=== PATIENT | male | born 1965 | race Caucasian/White ===

== ENCOUNTER 2019-10-11 10:59 | Day surgery (SDC) | payer MEDICARE, OTHER ==
[2019-10-03 08:42] VITALS: BMI 22.3
--- NOTE | 2019-10-05 19:46 | P.HPIHPCON ---
History of Present Illness H&P Date: 10/11/19 Chief Complaint: Microscopic hematuria Mr Magallanes is a 54 male that presented with microscopic hematuria. Patient lives in a group facility home and is nonverbal. Given patient microscopic hematuria decision was made to go to the OR for cystoscopy bilateral retrograde pyelogram. I discussed the risks with the family of the patient which includes bleeding infection. Also discussed the risk of anesthesia. They understood all the risk and agrees to proceed with surgery Consent for Procedure: I have explained the operation/procedure to the patient, including the risks, benefits, side effects, alternative therapies (including not receiving the proposed treatment or service), the likelihood of the patient achieving his/her goals, and potential recuperation problems for the procedure/sedation/analgesia, as well as any blood products, if indicated. I also explained to the patient the risks, benefits and side effects of the alternatives, as well as the risks related to not receiving the proposed procedure, care, treatment, or services. Past Medical History Past Medical History: Diabetes Mellitus, Deep Vein Thrombosis (DVT), Hyperlipidemia Additional Past Medical History / Comment(s): 2 episodes of urine incontinence and light bleeding in urine, developemental disabled,mental retardation-non verbal-able to sign-needs digital design engineer,able to walk with walker r/t vertigo,deaf History of Any Multi-Drug Resistant Organisms: None Reported Additional Past Surgical History / Comment(s): colonscopy,green field filter Past Anesthesia/Blood Transfusion Reactions: No Reported Reaction Additional Past Anesthesia/Blood Transfusion Reaction / Comment(s): no hx blood transfusion Smoking Status: Never smoker - Past Family History Mother Family Medical History: Cancer, Deep Vein Thrombosis (DVT) Additional Family Medical History / Comment(s): breast CA Sister(s) Family Medical History: Cancer Additional Family Medical History / Comment(s): thyroid CA Medications and Allergies Home Medications Medication Instructions Recorded Confirmed Type ARIPiprazole [Abilify] 20 mg PO BID 06/10/14 10/03/19 History Citalopram Hydrobromide 40 mg PO QAM 06/10/14 10/03/19 History [Citalopram HBr] LORazepam [Ativan] 0.5 mg PO BID PRN 06/10/14 10/03/19 History Omeprazole 40 mg PO QAM 06/10/14 10/03/19 History Vit A,C & E/Lutein/Minerals 1 each PO BID 06/10/14 10/03/19 History [Ocuvite Tablet] metFORMIN HCL 1,000 mg PO BID 06/10/14 10/03/19 History Artificial Tears-Hypromellose 1 drops BOTH EYES TID 10/03/19 10/03/19 History [Artificial Tear Drops] Docusate [Colace] 100 mg PO BID 10/03/19 10/03/19 History Erythromycin Ophth Oint [Romycin 1 applic BOTH EYES HS 10/03/19 10/03/19 History Ophth Oint] Fenofibrate Nanocrystallized 145 mg PO DAILY 10/03/19 10/03/19 History [Fenofibrate] Lisinopril [Zestril] 5 mg PO HS 10/03/19 10/03/19 History Lovastatin [Mevacor] 80 mg PO HS 10/03/19 10/03/19 History Magnesium 400 mg PO DAILY 10/03/19 10/03/19 History Mirabegron [Myrbetriq] 50 mg PO DAILY 10/03/19 10/03/19 History Tamsulosin [Flomax] 0.4 mg PO DAILY 10/03/19 10/03/19 History diphenhydrAMINE [Benadryl] 25 mg PO HS 10/03/19 10/03/19 History Allergies Allergy/AdvReac Type Severity Reaction Status Date / Time codeine Allergy Unknown Verified 10/03/19 08:30 Surgical - Exam - General no distress, no pain - Respiratory normal expansion, normal respiratory effort - Abdomen Abdomen: soft, non tender Assessment and Plan Assessment: 54-year-old male with history of microscopic hematuria -OR for cystoscopy and bilateral retrograde pyelogram
[~2019-10-11 10:59] MED LIST: DEXAMETHASONE SOD PHOSPHATE 10 MG/ML 1 ML VIAL IV ONE; LACTATED RINGERS 1,000 ML IV SCH; LIDOCAINE 1% 20 ML VIAL (10MG/ML) FOR IV START INTRADERMA PRN; ONDANSETRON 4 MG/2 ML VIAL IVP ONE; SCOPOLAMINE 1.5MG/72HR PATCH TRANSDERM ONE; fentaNYL (PF) 50 MCG/ML 2 ML AMP IV PRN
[2019-10-11 11:39] LABS: Glucose,Whole Blood 129 mg/dL (75-99)
[2019-10-11] MEDS ORDERED: MIDAZOLAM 2 MG/2 ML VIAL IVP ONE (11:45)
[2019-10-11] MEDS ORDERED: LIDOCAINE 1% INJ 10MG/ML (20 ML MDV) ONE (12:20)
[2019-10-11] MEDS ORDERED: MIDAZOLAM 2 MG/2 ML VIAL ONE (12:20)
[2019-10-11] MEDS ORDERED: PHENYLEPHRINE-0.9% NACL SYG 1 MG/10 ML SYRINGE ONE (12:20)
[2019-10-11] MEDS ORDERED: SUCCINYLCHOLINE CHLORIDE 100 MG/5 ML SYR IV ONE ×2 (12:20)
[2019-10-11] MEDS ORDERED: PROPOFOL 10 MG/ML 20 ML VIAL IV ONE (12:20)
[2019-10-11] MEDS ORDERED: fentaNYL (PF) 50 MCG/ML 2 ML AMP ONE (12:20)
--- NOTE | 2019-10-11 13:03 | P.OP ---
Date of Procedure: 10/11/19 Preoperative Diagnosis: Microscopic hematuria Postoperative Diagnosis: same Procedure(s) Performed: cystoscopy Implants: none Anesthesia: SOLANGEA Surgeon: Wilbur Jimenez Estimated Blood Loss (ml): 1 Pathology: none sent Condition: stable Disposition: PACU Indications for Procedure: Mr Magallanes is a 54 male that presented with microscopic hematuria. Patient lives in a group facility home and is nonverbal. Given patient microscopic hematuria I discussed with the family of option of cystoscopy and Retero grade pyelogram in the OR. Discussed with family risk of bleeding and infection, discussed with family low risk of injury to ureter from Reterograde pyelogram. Family wanted not to proceed with reterograde pyelogram given risk of ureteral injury. I discussed with them risk of missing ureteral tumor, they understood the risks and agreed to proceed with cystoscopy. Also discussed the risk of anesthesia. They understood all the risk and agrees to proceed with surgery Operative Findings: normal cystoscopy Description of Procedure: She was brought to the operating room general anesthesia was induced. He was prepped and draped in sterile fashion and placed in dorsal automate position. A cystoscope fitted with a 17-Canadian sheath was inserted per urethra cystoscopy was performed which showed no abnormality within the bladder or within the urethra. Clear efflux was visualized from the bilateral ureters. The bladder was emptied at the end of the case. The patient was awakened from anesthesia and taken to PACU in stable condition
[2019-10-11 13:30] VITALS: TEMP 97.9
[2019-10-11 14:07] LABS: Glucose,Whole Blood 134 mg/dL (75-99)
[2019-10-11 14:30] VITALS: RESP 20
[2019-10-11 14:36] VITALS: BP 120/68; PULSE 100
== END 2019-10-11 14:56 | disposition home or self-care (01) ==
LOC: OR 10:59
PROVIDERS: ATTEND Urology
DX: R31.29 Other microscopic hematuria (principal); E11.9 Type 2 diabetes mellitus without complications; E78.5 Hyperlipidemia, unspecified; K21.9 Gastro-esophageal reflux disease without esophagitis; H91.3 Deaf nonspeaking, not elsewhere classified; F79 Unspecified intellectual disabilities; F89 Unspecified disorder of psychological development; Z86.718 Personal history of other venous thrombosis and embolism; Z80.3 Family history of malignant neoplasm of breast; Z82.49 Family history of ischemic heart disease and other diseases of the circulatory system; Z80.8 Family history of malignant neoplasm of other organs or systems; Z79.84 Long term (current) use of oral hypoglycemic drugs; Z79.899 Other long term (current) drug therapy; Z88.5 Allergy status to narcotic agent
CPT/HCPCS: 52000; J2250; J1100; J0690; J2405; J2001; J3010; J2370; J0330; J2704

== ENCOUNTER → 2019-11-29 | Outpatient (CLI) | payer MEDICARE, OTHER ==
--- NOTE | 2019-11-29 09:56 | US ---
EXAMINATION TYPE: US kidneys/renal and bladder DATE OF EXAM: 11/29/2019 COMPARISON: NONE CLINICAL HISTORY: R31.9 HEMATURIA. EXAM MEASUREMENTS: Right Kidney: 11.3 x 5.1 x 5.2 cm Left Kidney: 12.7 x 6.0 x 6.2 cm Right Kidney: No hydronephrosis or masses seen, lower pole partially obscured by bowel gas. Left Kidney: No hydronephrosis or masses seen Bladder: not well distended, wall measures 0.6 cm. Order states Ultrasound of kidneys only, OK to do with partially distended bladder. Bilateral Jets seen: No There is no evidence for hydronephrosis at this point in time. No nephrolithiasis is seen. No francesca s are identified. The urinary bladder is anechoic with circumferential urinary bladder wall thickeni ng. Bilateral ureteral jets are not seen. Incidentally noted numerous gallstones within the gallbladder creating the wall echo shadow sign. IMPRESSION: 1. Circumferential urinary bladder wall thickening. Although this may partially relate to incomplete distention of the urinary bladder, correlation with urinalysis is recommended. 2. Incidentally noted numerous gallstones.
== END | disposition home or self-care (01) ==
LOC: RADUSWWP 09:09
PROVIDERS: ATTEND Urology
DX: N32.89 Other specified disorders of bladder (principal)
CPT/HCPCS: 76770

== ENCOUNTER → 2020-10-16 | Outpatient (CLI) | payer MEDICARE, OTHER ==
[2020-10-16 08:38] LABS: Basophils % (A) 1 %; Eosinophils # (A) 0.3 k/uL (0-0.7); Eosinophils % (A) 4 %; HCT 43.4 % (39.0-53.0); HGB 14.2 gm/dL (13.0-17.5); Lymphocytes # (A) 1.5 k/uL (1.0-4.8); Lymphocytes % (A) 22 %; MCH 28.1 pg (25.0-35.0); MCHC 32.8 g/dL (31.0-37.0); MCV 85.7 fL (80.0-100.0); Mean Platelet Volume 6.1; Monocytes # (A) 0.5 k/uL (0-1.0); Monocytes % (A) 7 %; Neutrophils # (A) 4.7 k/uL (1.3-7.7); Neutrophils % (A) 65 %; Platelet Count 280 k/uL (150-450); RBC 5.07 m/uL (4.30-5.90); RDW 13.1 % (11.5-15.5); WBC 7.2 k/uL (3.8-10.6)
[2020-10-16 16:09] LABS: ALT 18 U/L (10-49); AST 17 U/L (14-35); African American GFR (CKD) 87.1 (60.0-200.0); Alkaline Phosphatase 40 U/L (41-126); BUN/Creat Ratio 26.36 Ratio (12.00-20.00); Bilirubin, Conjugated <0.20 mg/dL (0.20-0.40); Carbon Dioxide 30.9 mmol/L (21.6-31.8); Chloride 103 mmol/L (96-109); Chol/HDL Ratio 2.17; Cholesterol 115 mg/dL (0-200); Glucose 132 mg/dL (70-110); Non-African American GFR(CKD) 75.2 (60.0-200.0); Potassium 4.5 mmol/L (3.5-5.5); Prostate Specific Antigen 0.4 ng/mL (0.0-3.5); Sodium 140 mmol/L (135-145); Total Bilirubin 0.3 mg/dL (0.3-1.2); Total Protein 6.6 g/dL (6.2-8.2); Triglycerides <50.0 mg/dL (0.0-149.0)
[2020-10-16 18:00] LABS: Hemoglobin A1C 6.7 % (4.0-6.0)
== END | disposition home or self-care (01) ==
LOC: LABWHC1 07:37
PROVIDERS: ATTEND Nurse Practitioner Family
DX: Z12.5 Encounter for screening for malignant neoplasm of prostate (principal); Z79.899 Other long term (current) drug therapy
CPT/HCPCS: 36415; 80048; 80061; 80076; 83036; 83721; 84153; 84439; 84443; 85025

== ENCOUNTER → 2021-02-17 | Outpatient (CLI) | payer MEDICARE, OTHER ==
[~2021-02-17] MED LIST changes: -DEXAMETHASONE SOD PHOSPHATE 10 MG/ML 1 ML VIAL IV ONE; -LACTATED RINGERS 1,000 ML IV SCH; -LIDOCAINE 1% 20 ML VIAL (10MG/ML) FOR IV START INTRADERMA PRN; -ONDANSETRON 4 MG/2 ML VIAL IVP ONE; +REGADENOSON 0.4 MG/5 ML SYRINGE IV PRN; -SCOPOLAMINE 1.5MG/72HR PATCH TRANSDERM ONE; -fentaNYL (PF) 50 MCG/ML 2 ML AMP IV PRN
--- NOTE | 2021-02-17 12:17 | NM ---
EXAMINATION TYPE: NM stress lexiscan cardiolite DATE OF EXAM: 02/17/2021 COMPARISON: NONE HISTORY: Dyspnea, diabetes and hypertension TECHNIQUE: After the intravenous administration of 9.4 mCi Tc 99m Sestamibi - Cardiolite resting SPE CT images acquired 45 minutes post injection. The patient received 0.4mg Lexiscan, 25.1 mCi Tc 99m Sestamibi - Stress images obtained [address] injection FINDINGS: Review of stress and rest SPECT images demonstrates decreased uptake along the anteroseptal left vent ricle on stress and rest images. Decreased uptake is also noted along the inferior wall the left vent ricle on stress and rest images. At the level of the septum more towards the base the heart there is an area of decreased uptake on stress as compared to rest images. Gated analysis shows normal wall mo tion with an estimated left ventricular ejection fraction of 77 %. IMPRESSION: Findings may be indicative of prior infarct, pharmacologically induced alicia-infarct left ventricular myocardial ischemia. Correlate for elevated ejection fraction with echocardiographic analysis A Yellow level critical message alert has been initiated for Shaw Monroy DO via the [facility] [facility] Critical Results System on 02/17/2021 12:14 PM. This message alert has been sent to Shaw law DO via the preferences provided by the clinician for the receipt of Radiology Critical Findings . Message ID [id number].
--- NOTE | 2021-02-17 12:18 | P.STRESS ---
- Stress Test Note Stress Test Results/Findings: Exam Performed: NM stress lexiscan cardiolite Exam Date: 02/17/21 Reason for Exam: Shortness of Breath Height: 5 ft 2 in Weight: 56.699 kg Protocol: Lexiscan Stage: na Duration of Exercise: na Resting Heart Rate: 90 Resting Blood Pressure: 146/66 Maximum Achieved Heart Rate: 118 Maximum Achieved Blood Pressure: 146/66 85% PMHR: 140 100% PMHR: 165 METS: na Technologist Comment: Stress Test Results/Findings: This is a 54-year-old gentleman being evaluated for symptoms of shortness of breath. Patient has history of hypertension, diabetes. Stress data Baseline EKG showed sinus rhythm with a QRS duration. Blood pressure at rest is 146/66 with pulse rate of 90. A standard dose of Lexiscan was infused EKGs taken during and after and did not reveal any changes of ischemia. Patient did not experience any chest pain. Final impression #1. Negative Lexiscan stress test #2. Report of the nuclear images to begin with the radiologist
== END | disposition home or self-care (01) ==
LOC: RADNMMAIN 08:05
PROVIDERS: ATTEND Family Medicine
DX: R06.09 Other forms of dyspnea (principal); E11.9 Type 2 diabetes mellitus without complications; I10 Essential (primary) hypertension; R06.02 Shortness of breath
CPT/HCPCS: 93017; 78452; A9500; J2785

== ENCOUNTER → 2021-03-31 | Outpatient (CLI) | payer MEDICARE, OTHER ==
--- NOTE | 2021-03-31 12:34 | XR ---
EXAMINATION TYPE: XR chest 2V DATE OF EXAM: 03/31/2021 COMPARISON: 10/14/2015 HISTORY: Shortness of breath TECHNIQUE: Frontal and lateral views of the chest are obtained. FINDINGS: Scattered senescent parenchymal changes noted. Hyperinflation compatible with COPD. Strandy basilar densities noted. No evidence for focal consolidation. Heart size is stable. Mediastinal structures are stable and grossly unremarkable. No evidence for hilar prominence. Degenerative changes dorsal spine. IMPRESSION: 1. Strandy basilar densities noted. No evidence for focal consolidation.
== END | disposition home or self-care (01) ==
LOC: RADXRMAIN 11:46
PROVIDERS: ATTEND Internal Medicine Cardiovascular Disease
DX: R91.8 Other nonspecific abnormal finding of lung field (principal)
CPT/HCPCS: 71046; 83880

== ENCOUNTER 2022-05-26 11:32 | Emergency (ER) | payer MEDICARE, OTHER ==
[2022-05-26] MEDS ORDERED: ONDANSETRON 4 MG/2 ML VIAL IVP STA (12:00)
[2022-05-26] MEDS ORDERED: SODIUM CHLORIDE 0.9% 500 ML 500 ML IV STA (12:00)
--- NOTE | 2022-05-26 12:05 | ED ---
General Adult HPI - General Chief complaint: Nausea/Vomiting/Diarrhea Stated complaint: Vomiting Time Seen by Provider: 05/26/22 11:55 Source: patient, RN notes reviewed, old records reviewed, Caregiver Mode of arrival: ambulatory Limitations: language barrier - History of Present Illness Initial comments: Non-toxic appearing 56-year-old deaf male, presents with caregiver from the [facility] with complaints of vomiting once last night and once this morning. Per caregiver, patient was able to keep down a protein shake after vomiting this morning. He is having normal bowel movements. Denies any fevers or abdominal pain. Denies any chest pain, cough or difficulty breathing. He does have history of oin-[id number] diabetes and blood glucose was 160 this morning. Caregiver states that he was exposed to coronavirus last week and wanted him evaluated. -: days(s) (2) Severity scale (1-10): 0 Consistency: now resolved Associated Symptoms: nausea/vomiting Treatments Prior to Arrival: none - Related Data Home Medications Medication Instructions Recorded Confirmed ARIPiprazole [Abilify] 20 mg PO BID 06/10/14 10/11/19 Citalopram Hydrobromide 40 mg PO QAM 06/10/14 10/11/19 [Citalopram HBr] LORazepam [Ativan] 0.5 mg PO BID PRN 06/10/14 10/11/19 Omeprazole 40 mg PO QAM 06/10/14 10/11/19 Vit A,C & E/Lutein/Minerals 1 each PO BID 06/10/14 10/11/19 [Ocuvite Tablet] metFORMIN HCL [Glucophage] 1,000 mg PO BID 06/10/14 10/11/19 Artificial Tears-Hypromellose 1 drops BOTH EYES TID 10/03/19 10/11/19 [Artificial Tear Drops] Docusate [Colace] 100 mg PO BID 10/03/19 10/11/19 Erythromycin Ophth Oint [Romycin 1 applic BOTH EYES HS 10/03/19 10/11/19 Ophth Oint] Fenofibrate Nanocrystallized 145 mg PO DAILY 10/03/19 10/11/19 [Fenofibrate] Lovastatin [Mevacor] 80 mg PO HS 10/03/19 10/11/19 Magnesium 400 mg PO DAILY 10/03/19 10/11/19 Mirabegron [Myrbetriq] 50 mg PO DAILY 10/03/19 10/11/19 Tamsulosin [Flomax] 0.4 mg PO DAILY 10/03/19 10/11/19 diphenhydrAMINE [Benadryl] 25 mg PO HS 10/03/19 10/11/19 lisinopriL [Zestril] 5 mg PO HS 10/03/19 10/11/19 Previous Rx's Medication Instructions Recorded Ciprofloxacin HCl [Cipro] 500 mg PO Q12HR #3 tablet 10/11/19 Allergies Allergy/AdvReac Type Severity Reaction Status Date / Time codeine Allergy Unknown Verified 05/26/22 11:44 Review of Systems ROS Statement: Those systems with pertinent positive or pertinent negative responses have been documented in the HPI. ROS Other: All systems not noted in ROS Statement are negative. Past Medical History Past Medical History: Diabetes Mellitus, Deep Vein Thrombosis (DVT), Hyperlipidemia Additional Past Medical History / Comment(s): 2 episodes of urine incontinence and light bleeding in urine, developemental disabled,mental retardation-non verbal-able to sign-needs residential designer,able to walk with walker r/t vertigo,deaf History of Any Multi-Drug Resistant Organisms: None Reported Additional Past Surgical History / Comment(s): colonscopy,green field filter Past Anesthesia/Blood Transfusion Reactions: No Reported Reaction Additional Past Anesthesia/Blood Transfusion Reaction / Comment(s): no hx blood transfusion Past Psychological History: No Psychological Hx Reported Smoking Status: Never smoker Past Alcohol Use History: None Reported Past Drug Use History: None Reported - Past Family History Mother Family Medical History: Cancer, Deep Vein Thrombosis (DVT) Additional Family Medical History / Comment(s): breast CA Sister(s) Family Medical History: Cancer Additional Family Medical History / Comment(s): thyroid CA General Exam Limitations: language barrier General appearance: alert, in no apparent distress Head exam: Present: atraumatic, normocephalic ENT exam: Present: normal exam, mucous membranes moist Neck exam: Present: normal inspection, full ROM. Absent: tenderness, meningismus, lymphadenopathy Respiratory exam: Present: normal lung sounds bilaterally. Absent: respiratory distress, accessory muscle use Cardiovascular Exam: Present: regular rate, tachycardia, normal heart sounds GI/Abdominal exam: Present: soft, normal bowel sounds. Absent: distended, tenderness, rigid Extremities exam: Present: normal capillary refill. Absent: pedal edema Back exam: Absent: tenderness, CVA tenderness (R), CVA tenderness (L), rash noted Neurological exam: Present: alert, other (walks with walker ) Psychiatric exam: Present: normal affect, normal mood Skin exam: Present: warm, dry, normal color. Absent: cyanosis, diaphoretic, petechiae, pallor Course Vital Signs 05/26/22 05/26/22 11:34 14:41 Temperature 98.0 F 98.7 F Pulse Rate 113 H 89 Respiratory 18 20 Rate Blood Pressure 103/60 114/59 O2 Sat by Pulse 98 94 L Oximetry Medical Decision Making - Medical Decision Making Non-toxic alert male presents with caregiver after an episode of vomiting last night and once again this morning. After vomiting this morning he was able to drink a protein shake and keep it down. He has had no vomiting in the emergency room. Abdomen soft and nontender. Patient denies any pain. No fevers. Caregiver states he is taking many different medications and believes that his symptoms may be medication related as he seems more tired than normal. Patient was given 500 mL of normal saline and zofran. CBC is within normal limits. Electrolytes are unremarkable. Blood glucose is 132. Coronavirus and influenza swabs are negative. Urinalysis is clear of any infection, negative for ketones. At this time I do not have a source for the patient's symptoms. Caregiver believes that he may be overmedicated and will discuss this with primary care doctor. Caregiver and patient were directed to follow up with primary care doctor this week and return to the emergency room with any new or concerning symptoms incl uding persistent nausea vomiting, fevers or abdominal pain. They are agreeable to this plan of care. Case discussed with Dr. Mars. - Lab Data Result diagrams: 05/26/22 12:31 05/26/22 12:31 Lab Results 05/26/22 05/26/22 05/26/22 Range/Units 12:31 12:31 12:31 WBC 9.7 (3.8-10.6) k/uL RBC 4.82 (4.30-5.90) m/uL Hgb 13.6 (13.0-17.5) gm/dL Hct 42.1 (39.0-53.0) % MCV 87.4 (80.0-100.0) fL MCH 28.2 (25.0-35.0) pg MCHC 32.3 (31.0-37.0) g/dL RDW 13.5 (11.5-15.5) % Plt Count 227 (150-450) k/uL MPV 6.9 Neutrophils % 77 % Lymphocytes % 12 % Monocytes % 5 % Eosinophils % 4 % Basophils % 0 % Neutrophils # 7.5 (1.3-7.7) k/uL Lymphocytes # 1.1 (1.0-4.8) k/uL Monocytes # 0.5 (0-1.0) k/uL Eosinophils # 0.4 (0-0.7) k/uL Basophils # 0.0 (0-0.2) k/uL Sodium 135 L (137-145) mmol/L Potassium 4.6 (3.5-5.1) mmol/L Chloride 100 (98-107) mmol/L Carbon Dioxide 29 (22-30) mmol/L Anion Gap 6 mmol/L BUN 16 (9-20) mg/dL Creatinine 0.73 (0.66-1.25) mg/dL Est GFR (CKD-EPI)AfAm >90 (>60 ml/min/1.73 sqM) Est GFR (CKD-EPI)NonAf >90 (>60 ml/min/1.73 sqM) Glucose 132 H (74-99) mg/dL Calcium 9.0 (8.4-10.2) mg/dL Total Bilirubin 0.9 (0.2-1.3) mg/dL AST 29 (17-59) U/L ALT 19 (4-49) U/L Alkaline Phosphatase 25 L (38-126) U/L Total Protein 6.0 L (6.3-8.2) g/dL Albumin 3.7 (3.5-5.0) g/dL Amylase 63 (30-110) U/L Lipase 62 (23-300) U/L Urine Color Light Yellow Urine Appearance Clear (Clear) Urine pH 7.5 (5.0-8.0) Ur Specific [place] 1.016 (1.001-1.035) Urine Protein Negative (Negative) Urine Glucose (UA) 4+ H (Negative) Urine Ketones Negative (Negative) Urine Blood Negative (Negative) Urine Nitrite Negative (Negative) Urine Bilirubin Negative (Negative) Urine Urobilinogen 2.0 (<2.0) mg/dL Ur Leukocyte Esterase Negative (Negative) Coronavirus (PCR) (Not Detectd) Influenza Type A RNA (Not Detectd) Influenza Type B (PCR) (Not Detectd) 05/26/22 05/26/22 Range/Units 12:31 12:31 WBC (3.8-10.6) k/uL RBC (4.30-5.90) m/uL Hgb (13.0-17.5) gm/dL Hct (39.0-53.0) % MCV (80.0-100.0) fL MCH (25.0-35.0) pg MCHC (31.0-37.0) g/dL RDW (11.5-15.5) % Plt Count (150-450) k/uL MPV Neutrophils % % Lymphocytes % % Monocytes % % Eosinophils % % Basophils % % Neutrophils # (1.3-7.7) k/uL Lymphocytes # (1.0-4.8) k/uL Monocytes # (0-1.0) k/uL Eosinophils # (0-0.7) k/uL Basophils # (0-0.2) k/uL Sodium (137-145) mmol/L Potassium (3.5-5.1) mmol/L Chloride (98-107) mmol/L Carbon Dioxide (22-30) mmol/L Anion Gap mmol/L BUN (9-20) mg/dL Creatinine (0.66-1.25) mg/dL Est GFR (CKD-EPI)AfAm (>60 ml/min/1.73 sqM) Est GFR (CKD-EPI)NonAf (>60 ml/min/1.73 sqM) Glucose (74-99) mg/dL Calcium (8.4-10.2) mg/dL Total Bilirubin (0.2-1.3) mg/dL AST (17-59) U/L ALT (4-49) U/L Alkaline Phosphatase (38-126) U/L Total Protein (6.3-8.2) g/dL Albumin (3.5-5.0) g/dL Amylase (30-110) U/L Lipase (23-300) U/L Urine Color Urine Appearance (Clear) Urine pH (5.0-8.0) Ur Specific [place] (1.001-1.035) Urine Protein (Negative) Urine Glucose (UA) (Negative) Urine Ketones (Negative) Urine Blood (Negative) Urine Nitrite (Negative) Urine Bilirubin (Negative) Urine Urobilinogen (<2.0) mg/dL Ur Leukocyte Esterase (Negative) Coronavirus (PCR) Not Detected (Not Detectd) Influenza Type A RNA Not Detected (Not Detectd) Influenza Type B (PCR) Not Detected (Not Detectd) Disposition Clinical Impression: Nausea & vomiting Disposition: HOME SELF-CARE Condition: Good Instructions (If sedation given, give patient instructions): Acute Nausea and Vomiting (ED) Additional Instructions: Return to the emergency room with any new or concerning symptoms including pain, fever or persistent nausea vomiting. Advance diet slowly over the next 24 hours, bananas, rice, applesauce and toast. Slowly advance diet if no further nausea or vomiting. Follow-up with Dr. Monroy this week. Continue previously prescribed medications. Is patient prescribed a controlled substance at d/c from ED?: No Referrals: Shaw Monroy DO [Primary Care Provider] - 1-2 days Time of Disposition: 13:42
[2022-05-26 12:50] LABS: Basophils % (A) 0 %; Eosinophils # (A) 0.4 k/uL (0-0.7); Eosinophils % (A) 4 %; HCT 42.1 % (39.0-53.0); HGB 13.6 gm/dL (13.0-17.5); Lymphocytes # (A) 1.1 k/uL (1.0-4.8); Lymphocytes % (A) 12 %; MCH 28.2 pg (25.0-35.0); MCHC 32.3 g/dL (31.0-37.0); MCV 87.4 fL (80.0-100.0); Mean Platelet Volume 6.9; Monocytes # (A) 0.5 k/uL (0-1.0); Monocytes % (A) 5 %; Neutrophils # (A) 7.5 k/uL (1.3-7.7); Neutrophils % (A) 77 %; Platelet Count 227 k/uL (150-450); RBC 4.82 m/uL (4.30-5.90); RDW 13.5 % (11.5-15.5); WBC 9.7 k/uL (3.8-10.6)
[2022-05-26 12:51] LABS: Appearance,Urine Clear (Clear); Bilirubin,Urine Negative (Negative); Blood,Urine Negative (Negative); Color,Urine Light Yellow; Glucose,Urine (UA) 4+ (Negative); Ketones,Urine Negative (Negative); Leukocyte Esterase,Urine Negative (Negative); Nitrite,Urine Negative (Negative); PH, Urine 7.5 (5.0-8.0); Protein,Urine Negative (Negative); Specific Gravity,Urine 1.016 (1.001-1.035)
[2022-05-26 13:03] LABS: ALT 19 U/L (4-49); African American GFR (CKD) >90 (>60 ml/min/1.73 sqM); Albumin 3.7 g/dL (3.5-5.0); Blood Urea Nitrogen 16 mg/dL (9-20); Chloride 100 mmol/L (98-107); Non-African American GFR(CKD) >90 (>60 ml/min/1.73 sqM); Sodium 135 mmol/L (137-145); Total Bilirubin 0.9 mg/dL (0.2-1.3)
[2022-05-26 13:25] LABS: Amylase 63 U/L (30-110); Anion Gap 6 mmol/L; Carbon Dioxide 29 mmol/L (22-30); Glucose 132 mg/dL (74-99); Lipase 62 U/L (23-300)
[2022-05-26 13:30] LABS: AST 29 U/L (17-59); Alkaline Phosphatase 25 U/L (38-126); Potassium 4.6 mmol/L (3.5-5.1)
[2022-05-26 14:42] VITALS: BP 114/59; PULSE 89; RESP 20; TEMP 98.7
== END 2022-05-26 14:42 | disposition home or self-care (01) ==
LOC: EC 11:32
DX: R11.2 Nausea with vomiting, unspecified (principal); E11.9 Type 2 diabetes mellitus without complications; E78.5 Hyperlipidemia, unspecified; Z79.899 Other long term (current) drug therapy; Z88.5 Allergy status to narcotic agent; Z20.822 Contact with and (suspected) exposure to COVID-19; Z79.84 Long term (current) use of oral hypoglycemic drugs
CPT/HCPCS: 36415; 80053; 82150; 83690; 85025; 81003; 87502; 87635; 99284; 96374; J2405

== ENCOUNTER → 2022-10-01 | Outpatient (CLI) | payer MEDICARE, OTHER ==
--- NOTE | 2022-10-01 11:42 | XR ---
EXAMINATION TYPE: XR abdomen 2V DATE OF EXAM: 10/01/2022 11:22 AM INDICATION: Patient age:Male; 57 years old; Reason for study: K57.32 DVTRCLI OF LG INT W/O PERFORATION OR ABSCES; COMPARISON: None. TECHNIQUE: Two views of the abdomen were obtained. FINDINGS: The bowel gas pattern is nonspecific without dilated loops of small or large bowel. There i s no evidence for organomegaly or pneumoperitoneum. The osseous structures are intact. No abnormal calcifications are present. Fecal material and gas are demonstrated throughout the colon and rectum. IVC filter noted. Large stool burden throughout the colon. IMPRESSION: 1. Nonspecific bowel gas pattern without radiographic evidence for acute process. No evidence of bravo e air. 2. Large stool burden throughout the colon.
== END | disposition home or self-care (01) ==
LOC: RADXRMAIN 11:03
PROVIDERS: ATTEND Family Medicine
DX: R10.9 Unspecified abdominal pain (principal); R19.5 Other fecal abnormalities
CPT/HCPCS: 74019

== ENCOUNTER → 2022-11-23 | Outpatient (CLI) | payer MEDICARE, OTHER ==
[2022-11-23 14:36] LABS: Basophils # (A) 0.02 X 10*3/uL (0.00-0.10); Basophils % (A) 0.3 %; Eosinophils # (A) 0.13 X 10*3/uL (0.04-0.35); Eosinophils % (A) 1.8 %; HCT 46.9 % (39.6-50.0); HGB 15.5 g/dL (13.0-17.0); Immature Grans, Automated 0.4 %; Lymphocytes # (A) 1.02 X 10*3/uL (0.90-5.00); MCH 28.1 pg (27.0-32.0); MCV 85.1 fL (80.0-97.0); Monocytes # (A) 0.54 X 10*3/uL (0.20-1.00); Monocytes % (A) 7.4 %; NRBC Per 100 WBC 0 /100 WBCS (0.0-0.0); Neutrophils # (A) 5.55 X 10*3/uL (1.80-7.70); Neutrophils % (A) 76.1 %; Platelet Count 194 X 10*3/uL (140-440); RBC 5.51 X 10*6/uL (4.40-5.60); RDW 12.9 % (11.5-14.5); WBC 7.29 X 10*3/uL (4.50-10.00)
[2022-11-23 14:58] LABS: ALT 25 U/L (10-49); AST 17 U/L (14-35); African American GFR (CKD) 104.7 (60.0-200.0); Albumin 4.3 g/dL (3.8-4.9); Albumin/Globulin Ratio 1.96 (1.60-3.17); Alkaline Phosphatase 58 U/L (41-126); Bilirubin, Conjugated 0.21 mg/dL (0.20-0.40); Bilirubin,Unconjugated 0.55 mg/dL (0.20-1.00); Blood Urea Nitrogen 17.2 mg/dL (9.0-27.0); Chol/HDL Ratio 2.17 Ratio; Globulin 2.2 g/dL (1.6-3.3); Glucose 182 mg/dL (70-110); LDL Cholesterol,Calculated 54.6 mg/dL (0.0-131.0); Non-African American GFR(CKD) 90.3 (60.0-200.0); Total Protein 6.4 g/dL (6.2-8.2); VLDL Calculation 16.02 mg/dL (5.00-40.00)
== END | disposition home or self-care (01) ==
LOC: LABWHC1 09:23
PROVIDERS: ATTEND Nurse Practitioner Family
DX: Z79.899 Other long term (current) drug therapy (principal)
CPT/HCPCS: 36415; 80061; 80076; 82565; 82947; 83036; 84439; 84443; 84520; 85025

== ENCOUNTER → 2023-11-01 | Outpatient (CLI) | payer MEDICARE, OTHER ==
--- NOTE | 2023-11-01 09:35 | CT ---
EXAMINATION TYPE: CT brain wo con DATE OF EXAM: 11/01/2023 COMPARISON: 10/06/2015 HISTORY: Right leg weakness CT DLP: 1202.[address] of the brain was performed. The ventricles, basal cisterns and sulci overlying the cerebral convexities demonstrate mild enlargem ent. There is no evidence for intracranial hemorrhage or sulcal effacement. There is decreased attenuation about the periventricular white matter and deep white matter of both c erebral hemispheres, compatible with chronic small vessel ischemia. Differential diagnosis does inclu de demyelination. No mass effects are seen.No midline shift. Osseous calvarium is intact. If symptoms persist consider MRI. IMPRESSION: 1. Age related atrophic and chronic small vessel ischemic change without acute intracranial process s een at this time.
== END | disposition home or self-care (01) ==
LOC: RADCTMAIN 08:56
PROVIDERS: ATTEND Internal Medicine
DX: G31.1 Senile degeneration of brain, not elsewhere classified (principal); I67.82 Cerebral ischemia; R29.898 Other symptoms and signs involving the musculoskeletal system
CPT/HCPCS: 70450

== ENCOUNTER → 2024-02-03 | Outpatient (CLI) | payer MEDICARE, OTHER ==
[2024-02-03 19:21] LABS: % Iron Saturation 15.97 (15.00-50.00); ALT 32 U/L (10-49); AST 23 U/L (14-35); Albumin 4.3 g/dL (3.8-4.9); Albumin/Globulin Ratio 1.87 Ratio (1.60-3.17); Alkaline Phosphatase 50 U/L (41-126); BUN/Creat Ratio 25.22 Ratio (12.00-20.00); Blood Urea Nitrogen 22.7 mg/dL (9.0-27.0); Carbon Dioxide 29.6 mmol/L (21.6-31.8); Chloride 101 mmol/L (96-109); Chol/HDL Ratio 3.11 Ratio; Ferritin 50.8 ng/mL (22.0-322.0); Globulin 2.3 g/dL (1.6-3.3); Glucose 110 mg/dL (70-110); Iron 61 UG/DL (65-175); LDL Cholesterol,Calculated 52.8 mg/dL (0.0-131.0); Potassium 4.4 mmol/L (3.5-5.5); Prostate Specific Antigen 0.48 ng/mL (0.000-3.500); Sodium 141 mmol/L (135-145); Total Bilirubin 0.4 mg/dL (0.3-1.2); Total Iron Binding Capacity 382 UG/DL (228-460); Total Protein 6.6 g/dL (6.2-8.2)
== END | disposition home or self-care (01) ==
LOC: LABWHC1 12:20
PROVIDERS: ATTEND Internal Medicine
DX: E03.9 Hypothyroidism, unspecified (principal); E78.2 Mixed hyperlipidemia; E11.21 Type 2 diabetes mellitus with diabetic nephropathy; N40.0 Benign prostatic hyperplasia without lower urinary tract symptoms; D50.0 Iron deficiency anemia secondary to blood loss (chronic); R35.0 Frequency of micturition
CPT/HCPCS: 36415; 80053; 80061; 82607; 82728; 82746; 83540; 83550; 84153; 84443

== ENCOUNTER 2024-04-02 17:57 | Inpatient (IN) | payer MEDICARE, OTHER ==
[2024-04-02 18:06] LABS: Glucose,Whole Blood 137 mg/dL (70-110)
--- NOTE | 2024-04-02 18:18 | ED ---
General Adult HPI - General Chief complaint: Overdose Stated complaint: Overdose Time Seen by Provider: 04/02/24 18:00 Source: patient, RN notes reviewed, old records reviewed Mode of arrival: EMS Limitations: no limitations - History of Present Illness Initial comments: This is a 58-year-old male [facility]. Patient accidentally was given or took his roommate meds at 430 today this is what the sister thinks but we do not have a report from the usp yet.. Since then has become more and more obtunded and altered and now he is not responding to us except for painful stimuli. Patient's guardian his sister is here and she states he is not to be intubated. Patient took lorazepam, amitiza, clozapine, lamotrigine, banophen, fenofibrate. Patient is a diabetic. Patient became more obtunded according to EMS and they were called to come see the patient. Patient was not responding to EMS also the put him in the ambulance and brought him to us immediately. According to EMS he was vomiting because the staff was trying to f eed him even though he was more obtunded than baseline. No other history is available at this time - Related Data Home Medications Medication Instructions Recorded Confirmed Citalopram Hydrobromide 40 mg PO DAILY@0630 06/10/04/02/24 [Citalopram HBr] Artificial Tears-Hypromellose 1 drop BOTH EYES TID@0630,1600,2100 10/03/19 04/02/24 [Artificial Tear Drops] Erythromycin Ophth Oint [Romycin 1 applic BOTH EYES HS 10/03/19 04/02/24 Ophth Oint] Lovastatin [Mevacor] 80 mg PO DAILY@1700 10/03/19 04/02/24 Mirabegron [Myrbetriq] 50 mg PO DAILY@0630 10/03/19 04/02/24 Tamsulosin [Flomax] 0.4 mg PO DAILY@0630 10/03/19 04/02/24 ARIPiprazole [Abilify] 7.5 mg PO HS 04/02/24 04/02/24 Dextrose Chew [Glucose Chew Tab] 4 gm PO ONCE PRN 04/02/24 04/02/24 Ferrous Sulfate [Feosol] 325 mg PO BID@0630,1700 04/02/2424 Insulin Degludec [Tresiba 10 units SQ HS 04/02/24 04/02/24 Flextouch U-100 Pen] Daphne Baby Shampoo 1 applic BOTH EYES CAMARENA 04/02/24 04/02/24 Levothyroxine Sodium [Synthroid] 25 mcg PO DAILY@62904/02/24 04/02/24 Magnesium Oxide [Magox 400] 400 mg PO DAILY@62904/02/24 04/02/24 Melatonin 5 mg PO HS PRN 04/02/24 04/02/24 Pantoprazole [Protonix] 40 mg PO DAILY@62904/02/24 04/02/24 Vit C/E/Zn/Coppr/Lutein/Zeaxan 1 cap PO BID@629,169904/02/24 04/02/24 [Preservision Areds 2 Softgel] lisinopriL [Zestril] 10 mg PO DAILY@169904/02/24 04/02/24 polyethylene glycoL 3350 [Miralax] 17 gm PO DAILY@62904/02/24 04/02/24 sitaGLIPtin [Januvia] 100 mg PO DAILY@62904/02/24 04/02/24 Allergies Allergy/AdvReac Type Severity Reaction Status Date / Time codeine Allergy Unknown Verified 04/02/24 18:48 Review of Systems ROS Statement: Those systems with pertinent positive or pertinent negative responses have been documented in the HPI. ROS Other: All systems not noted in ROS Statement are negative. Past Medical History Past Medical History: Diabetes Mellitus, Deep Vein Thrombosis (DVT), Hyperlipidemia Additional Past Medical History / Comment(s): 2 episodes of urine incontinence and light bleeding in urine, developemental disabled,mental retardation-non verbal-able to sign-needs men's designer,able to walk with walker r/t vertigo,deaf History of Any Multi-Drug Resistant Organisms: None Reported Additional Past Surgical History / Comment(s): colonscopy,green field filter Past Anesthesia/Blood Transfusion Reactions: No Reported Reaction Additional Past Anesthesia/Blood Transfusion Reaction / Comment(s): no hx blood transfusion Past Psychological History: No Psychological Hx Reported Smoking Status: Never smoker Past Alcohol Use History: None Reported Past Drug Use History: None Reported - Past Family History Mother Family Medical History: Cancer, Deep Vein Thrombosis (DVT) Additional Family Medical History / Comment(s): breast CA Sister(s) Family Medical History: Cancer Additional Family Medical History / Comment(s): thyroid CA General Exam - General Exam Comments Initial Comments: GENERAL: Patient is well-developed and well-nourished. Patient is nontoxic and well- hydrated patient appears to be gagging on some food at this time. Patient is only responding to significant painful stimuli. Patient is deaf ENT: Neck is soft and supple. No significant lymphadenopathy is noted. Oropharynx is clear. Moist mucous membranes. Neck has full range of motion without eliciting any pain. EYES: The sclera were anicteric and conjunctiva were pink and moist. PULMONARY: Unlabored respirations. Patient is occasionally gasping for air coughing up some food CARDIOVASCULAR: Patient is tachycardic at about 120 beats a minute ABDOMEN: Soft and nontender with normal bowel sounds. SKIN: Skin is clear with no lesions or rashes and otherwise unremarkable. NEUROLOGIC: Patient is not alert. Cranial nerves II through XII are grossly intact. PSYCHIATRIC: Normal psychiatric evaluation. Limitations: no limitations Course Vital Signs 04/02/24 04/02/24 04/02/24 18:00 18:32 19:00 Temperature 96.5 F L Pulse Rate 118 H 116 H 105 H Respiratory 12 26 H 18 Rate Blood Pressure 190/88 182/89 127/67 O2 Sat by Pulse 95 94 L 95 Oximetry 04/02/24 20:20 Temperature Pulse Rate Respiratory 18 Rate Blood Pressure O2 Sat by Pulse Oximetry Medical Decision Making - Medical Decision Making EKG is interpreted by myself. EKG shows sinus tachycardia at 112 bpm NM interval is 201 QRS is 118 QT interval is 336 QTc is 402. Patient's EKG shows no ST segment ovation or depression. Was pt. sent in by a medical professional or institution (, PA, OYSTER CULLER, urgent care, hospital, or usp...) When possible be specific @ -Patient was sent in by the adult foster care facility Did you speak to anyone other than the patient for history (EMS, parent, family, police, friend...)? What history was obtained from this source @ -Sister and EMS gave all the history Did you review nursing and triage notes (agree or disagree)? Why? @ -I reviewed and agree with nursing and triage notes Were old charts reviewed (outside hosp., previous admission, EMS record, old EKG, old radiological studies, urgent care reports/EKG's, usp records)? Report findings @ -No old charts were reviewed Differential Diagnosis (chest pain, altered mental status, abdominal pain women, abdominal pain men, vaginal bleeding, weakness, fever, dyspnea, syncope, headache, dizziness, GI bleed, back pain, seizure, CVA, palpatations, mental health, musculoskeletal)? @ -Differential Altered Mental Status: Hypoglycemia, DKA, hypercapnia, ETOH, overdose, CO poisoning, trauma, myxedema coma, HTN encephalopathy, infection, encephalitis, psychosis, intercranial hemorrhage, hepatic encephalopathy, meningitis, CVA, this is not meant to be an all-inclusive list EKG interpreted by me (3pts min.). @ -As above X-rays interpreted by me (1pt min.). @ -Chest x-ray shows no acute abnormality CT interpreted by me (1pt min.). @ -None done U/S interpreted by me (1pt. min.). @ -None done What testing was considered but not performed or refused? (CT, X-rays, U/S, labs)? Why? @ -None What meds were considered but not given or refused? Why? @ -None Did you discuss the management of the patient with other professionals (professionals i.e. , PA, OYSTER CULLER, lab, RT, psych nurse, social media marketing analyst, lawyers, teacher, air crew officer, manager case management)? Give summary @ -I spoke with Dr. Schwartz and he agreed to admit the patient admit the patient recommending orders Was smoking cessation discussed for >3mins.? @ -No Was critical care preformed (if so, how long)? @ -No Were there social determinants of health that impacted care today? How? (Homelessness, low income, unemployed, alcoholism, drug addiction, transportation, low edu. Level, literacy, decrease access to med. care, [facility], rehab)? @ -No Was there de-escalation of care discussed even if they declined (Discuss DNR or withdrawal of care, Hospice)? DNR status @ -No What co-morbidities impacted this encounter? (DM, HTN, Smoking, COPD, CAD, Cancer, CVA, ARF, Chemo, Hep., AIDS, mental health diagnosis, sleep apnea, morbid obesity)? @ -None Was patient admitted / discharged? Hospital course, mention meds given and route, prescriptions, significant lab abnormalities, going to OR and other pertinent info. @ -Patient had an accidental overdose of someone else's meds. Patient has been obtunded throughout his stay. Family states he is in no code no intubation. Patient has been oxygenating in the low to mid 90s. Undiagnosed new problem with uncertain prognosis? @ -No Drug Therapy requiring intensive monitoring for toxicity (Heparin, Nitro, Insulin, Cardizem)? @ -No Were any procedures done? @ -No Diagnosis/symptom? @ -Accidental overdose Acute, or Chronic, or Acute on Chronic? @ -Default Uncomplicated (without systemic symptoms) or Complicated (systemic symptoms)? @ -Comp Side effects of treatment? @ -No Exacerbation, Progression, or Severe Exacerbation? @ -No Poses a threat to life or bodily function? How? (Chest pain, [place], [place], pneumonia, PE, COPD, DKA, ARF, appy, cholecystitis, CVA, Diverticulitis, Homicidal, Suicidal, threat to staff... and all critical care pts) @ -Yes this can lead to aspiration and Diagnosis/symptom? @ -Aspiration pneumonia Acute, or Chronic, or Acute on Chronic? @ -Acute Uncomplicated (without systemic symptoms) or Complicated (systemic symptoms)? @ -Complicated Side effects of treatment? @ -None Exacerbation, Progression, or Severe Exacerbation] @ -No Poses a threat to life or bodily function? @ -Yes this can lead to sepsis and endorgan dysfunction - Lab Data Result diagrams: 04/02/24 18:15 04/02/24 18:15 Lab Results 04/02/24 04/02/24 04/02/24 Range/Units 18:04 18:15 18:15 WBC 12.5 H (3.8-10.6) k/uL RBC 5.75 (4.30-5.90) m/uL Hgb 16.0 (13.0-17.5) gm/dL Hct 49.9 (39.0-53.0) % MCV 86.8 (80.0-100.0) fL MCH 27.8 (25.0-35.0) pg MCHC 32.0 (31.0-37.0) g/dL RDW 12.9 (11.5-15.5) % Plt Count 159 (150-450) k/uL MPV 7.8 Neutrophils % 76 % Lymphocytes % 15 % Monocytes % 6 % Eosinophils % 1 % Basophils % 0 % Neutrophils # 9.5 H (1.3-7.7) k/uL Lymphocytes # 1.9 (1.0-4.8) k/uL Monocytes # 0.8 (0-1.0) k/uL Eosinophils # 0.2 (0-0.7) k/uL Basophils # 0.0 (0-0.2) k/uL Sodium 138 (137-145) mmol/L Potassium 4.1 (3.5-5.1) mmol/L Chloride 102 (98-107) mmol/L Carbon Dioxide 29 (22-30) mmol/L Anion Gap 7 mmol/L BUN 29 H (9-20) mg/dL Creatinine 0.81 (0.66-1.25) mg/dL Est GFR (CKD-EPI)AfAm >90 (>60 ml/min/1.73 sqM) Est GFR (CKD-EPI)NonAf >90 (>60 ml/min/1.73 sqM) Glucose 142 H (74-99) mg/dL POC Glucose (mg/dL) 137 H (70-110) mg/dL POC Glu Correspondence Renew Clerk ID Zhanna Wheatley Plasma Lactic Acid Toni (0.7-2.0) mmol/L Calcium 9.2 (8.4-10.2) mg/dL Magnesium 1.9 (1.6-2.3) mg/dL Total Bilirubin 0.7 (0.2-1.3) mg/dL AST 29 (17-59) U/L ALT 28 (4-49) U/L Alkaline Phosphatase 58 (38-126) U/L Total Protein 6.9 (6.3-8.2) g/dL Albumin 4.1 (3.5-5.0) g/dL 04/02/24 Range/Units 18:15 WBC (3.8-10.6) k/uL RBC (4.30-5.90) m/uL Hgb (13.0-17.5) gm/dL Hct (39.0-53.0) % MCV (80.0-100.0) fL MCH (25.0-35.0) pg MCHC (31.0-37.0) g/dL RDW (11.5-15.5) % Plt Count (150-450) k/uL MPV Neutrophils % % Lymphocytes % % Monocytes % % Eosinophils % % Basophils % % Neutrophils # (1.3-7.7) k/uL Lymphocytes # (1.0-4.8) k/uL Monocytes # (0-1.0) k/uL Eosinophils # (0-0.7) k/uL Basophils # (0-0.2) k/uL Sodium (137-145) mmol/L Potassium (3.5-5.1) mmol/L Chloride (98-107) mmol/L Carbon Dioxide (22-30) mmol/L Anion Gap mmol/L BUN (9-20) mg/dL Creatinine (0.66-1.25) mg/dL Est GFR (CKD-EPI)AfAm (>60 ml/min/1.73 sqM) Est GFR (CKD-EPI)NonAf (>60 ml/min/1.73 sqM) Glucose (74-99) mg/dL POC Glucose (mg/dL) (70-110) mg/dL POC Glu Correspondence Renew Clerk ID Plasma Lactic Acid Toni 1.0 (0.7-2.0) mmol/L Calcium (8.4-10.2) mg/dL Magnesium (1.6-2.3) mg/dL Total Bilirubin (0.2-1.3) mg/dL AST (17-59) U/L ALT (4-49) U/L Alkaline Phosphatase (38-126) U/L Total Protein (6.3-8.2) g/dL Albumin (3.5-5.0) g/dL Disposition Clinical Impression: Accidental drug overdose, Aspiration pneumonia Disposition: ADMITTED IP TO THIS HOSP Referrals: Giovanna Schwartz MD [Primary Care Provider] - 1-2 days Time of Disposition: 20:50
[2024-04-02] MEDS: cefTRIAXone IN SWFI 1,000 MG/10 ML SYRINGE IVP STA ×2 (18:29→18:30)
--- NOTE | 2024-04-02 19:01 | XR ---
EXAMINATION TYPE: XR chest 1V DATE OF EXAM: 04/02/2024 COMPARISON: 03/31/2021 HISTORY: Difficulty breathing TECHNIQUE: Single frontal view of the chest is obtained. FINDINGS: There is no focal air space opacity, pleural effusion, or pneumothorax seen. The cardiac silhouette size is within normal limits. The osseous structures are intact. IMPRESSION: No acute process.
[2024-04-02 19:02] LABS: Basophils % (A) 0 %; Eosinophils # (A) 0.2 k/uL (0-0.7); Eosinophils % (A) 1 %; HCT 49.9 % (39.0-53.0); Lymphocytes # (A) 1.9 k/uL (1.0-4.8); Lymphocytes % (A) 15 %; MCH 27.8 pg (25.0-35.0); MCV 86.8 fL (80.0-100.0); Mean Platelet Volume 7.8; Monocytes # (A) 0.8 k/uL (0-1.0); Monocytes % (A) 6 %; Neutrophils # (A) 9.5 k/uL (1.3-7.7); Neutrophils % (A) 76 %; Platelet Count 159 k/uL (150-450); RBC 5.75 m/uL (4.30-5.90); RDW 12.9 % (11.5-15.5); WBC 12.5 k/uL (3.8-10.6)
[2024-04-02 19:25] LABS: ALT 28 U/L (4-49); AST 29 U/L (17-59); African American GFR (CKD) >90 (>60 ml/min/1.73 sqM); Albumin 4.1 g/dL (3.5-5.0); Alkaline Phosphatase 58 U/L (38-126); Anion Gap 7 mmol/L; Blood Urea Nitrogen 29 mg/dL (9-20); Calcium 9.2 mg/dL (8.4-10.2); Carbon Dioxide 29 mmol/L (22-30); Chloride 102 mmol/L (98-107); Glucose 142 mg/dL (74-99); Magnesium 1.9 mg/dL (1.6-2.3); Non-African American GFR(CKD) >90 (>60 ml/min/1.73 sqM); Potassium 4.1 mmol/L (3.5-5.1); Sodium 138 mmol/L (137-145); Total Bilirubin 0.7 mg/dL (0.2-1.3); Total Protein 6.9 g/dL (6.3-8.2)
[2024-04-02] MEDS: NALOXONE 0.4 MG/ML 1 ML VIAL IVP STA ×2 (20:20→21:21)
[2024-04-02] MEDS: SODIUM CHLORIDE 0.9% 1,000 ML IV ONE (20:57)
--- NOTE | 2024-04-02 21:00 | CT ---
EXAMINATION TYPE: CT brain wo con DATE OF EXAM: 04/02/2024 COMPARISON: 11/01/2023 HISTORY: pt arrives from [facility] for accidental overdose on another residents medicat ions pt took medications at around 1600 CT DLP: 1105.8 mGycm Automated exposure control for dose reduction was used. Findings: The ventricles, basal cisterns and sulci over the convexities are within normal limits and there is n o mass effect or shift of midline structures. No abnormal density is seen throughout the brain parenchyma and there is no acute intra or extra-axia l hemorrhage. The posterior fossa including the brainstem, fourth ventricle and cerebellar pontine angles appear no rmal. Intraorbital contents appear normal and symmetric. Visualized paranasal sinuses and mastoid air cells are well aerated. The frontal sinuses are hypoplas tic The calvarium is intact. IMPRESSION: No significant abnormality seen. There is no acute bleed or mass effect.
[2024-04-02] MEDS ORDERED: PNEUMONIA PROTOCOL UTILIZED 1 EACH MISC PO PRN (21:09)
[2024-04-02] MEDS: SODIUM CHLORIDE 0.9% 1,000 ML IV SCH (21:20)
[2024-04-02 21:34] LABS: Amphetamine Screen,Urine Not Detected (NotDetected); Barbiturate Screen,Urine Not Detected (NotDetected); Benzodiazepines Screen,Urine Not Detected (NotDetected); Cocaine Screen,Urine Not Detected (NotDetected); Methadone Screen, Urine Not Detected (NotDetected); Opiate Screen,Urine Not Detected (NotDetected); Oxycodone Screen, Urine Not Detected (NotDetected); Phencyclidine Screen,Urine Not Detected (NotDetected); Tricyclic Antidepressant,Urine Not Detected (NotDetected); Urn Cannabinoid Scrn Not Detected (NotDetected)
[2024-04-02 22:14] LABS: Acetaminophen <10.0 ug/mL; Salicylate <1.0 mg/dL
[2024-04-02] MEDS: PIPERACILLIN-TAZOBACTAM 3.375 GM in SODIUM CHLORIDE 0.9% 100 ML IVPB STA (22:36)
[2024-04-02] MEDS: AZITHROMYCIN 500 MG in SODIUM CHLORIDE 0.9% 250 ML IVPB STA (22:47)
[2024-04-03 00:42] LABS: Glucose,Whole Blood 153 mg/dL (70-110)
[2024-04-03] MEDS: IBUPROFEN IV 800 MG in SODIUM CHLORIDE 0.9% 250 ML IV ONE (04:23)
[2024-04-03] MEDS: IPRATROPIUM-ALBUTEROL 3 ML NEB INHALATION STA (04:26)
[2024-04-03 04:38] LABS: VBG PH 7.42 (7.31-7.41)
--- NOTE | 2024-04-03 05:20 | XR ---
EXAMINATION TYPE: XR chest 1V portable DATE OF EXAM: 04/03/2024 CLINICAL HISTORY: Cough. TECHNIQUE: Single AP portable upright view of the chest is obtained. COMPARISON: Chest x-ray from one day earlier FINDINGS: No suspicious new focal airspace opacity, pleural effusion, or pneumothorax is seen bilate rally. Cardiac silhouette size stable and within normal limits. Osseous structures are intact. IMPRESSION: No acute pulmonary process. No significant change from one day earlier.
[2024-04-03] MEDS: SODIUM CHLORIDE 0.9% 1,000 ML IV ONE (07:13)
[2024-04-03] MEDS: IPRATROPIUM-ALBUTEROL 3 ML NEB INHALATION PRN (08:21)
[2024-04-03] MEDS: PIPERACILLIN-TAZOBACTAM 3.375 GM in SODIUM CHLORIDE 0.9% 100 ML IVPB SCH (08:39)
[2024-04-03 11:04] LABS: Glucose,Whole Blood 89 mg/dL (70-110)
--- NOTE | 2024-04-03 13:23 | P.HPIM ---
History of Present Illness H&P Date: 04/03/24 Chief Complaint: Metabolic encephalopathy HISTORY OF PRESENT ILLNESS: This is a 58-year-old male with a previous medical history significant for hypertension and hypertensive cardiovascular disease, hyperlipidemia, history of diabetes mellitus type 2, history of impulsive disorder with deafness, history of bilateral carpal tunnel syndrome, patient lives in a alf, apparently the patient yesterday was given accidentally medications do not belong to him and he was getting fed by the caregiver at the alf, patient ended up becoming quite lethargic and not responsive, EMS was called and the patient was brought into the emergency department at [facility] had a CT scan of the brain did not show evidence of acute abnormalities, chest x-ray s howed possible haziness in the right middle lobe, because of the presentation patient was quite stuporous not arousable, family were at the bedside, they were offered the patient to be intubated at this point in time, but they were reluctant to have an intubation as the patient is DO NOT RESUSCITATE at this point in time, therefore the patient was started on oxygen, he is currently on 2 L nasal cannula, his oxygen saturation anywhere between 91 and 94%, patient was started on IV antibiotic in the form of Zithromax as well as Zosyn, he will be seen in consultation by pulmonary medicine as well as by neurology, for his metabolic encephalopathy, I spoke with the sister at the bedside, she is pl anning to transfer the patient from this current alf to a different home after he leaves the hospital he is going home with her. REVIEW OF SYSTEMS: Constitutional: Positive lethargy nonresponsive. EENT: Patient is lethargic and nonresponsive. Lungs: Weak cough and appears to be somewhat short of breath. Cardiovascular: Patient is lethargic and nonresponsive. Abdominal: Reports abdominal pain. Episode of nausea, and vomiting. No diarrhea. No constipation. No bloody or tarry stools reports loss of appetite. Genitourinary: No dysuria, increased frequency, urgency. No urinary retention. Baez catheter in place. Musculoskeletal: No myalgias. No muscle weakness, no gait dysfunction, no frequent falls. No back pain. No neck pain. Integumentary: No wounds, no lesions. No rash or pruritus. No unusual bruising. No change in hair or nails. Neurologic: No aphasia. No facial droop. Positive for change in mentation. No head injury. Psychiatric: Impulsive disorder with deafness. Endocrine: No abnormal blood sugars. No weight change. PAST MEDICAL HISTORY: Impulsive disorder. Hypertension and hypertensive cardiovascular disease. Mixed hyperlipidemia. Diabetes mellitus type 2. Deafness. Macular corneal dystrophy bilateral. Bilateral carpal tunnel. Hypothyroidism. Iron deficiency anemia. PAST SURGICAL HISTORY: Colonoscopy 2014. SOCIAL HISTORY: FAMILY HISTORY: Father at age of 66 from emphysema/COPD, mother at the age of 84 from metastatic breast cancer to the bone also she had atrial fibrillation with congestive heart failure and diabetes mellitus type 2, patient has 2 brothers with diabetes type 2. Patient had 2 sisters 1 from motor vehicle accident and the other 1 with diabetes type 2. PHYSICAL EXAMINATION: General: This is a 58-year-old male laying down in bed appears to be nonresponsive. HEENT: Head is atraumatic, normocephalic, pupils could not be examined at this point in time, his mouth is dry. Neck: Supple, no JVP, normal carotid upstroke bilaterally, no lymphadenopathy. Chest: Decreased breath sounds at the bases, few rhonchi, minimal expiratory wheezes, no chest wall tenderness, no intercostal retractions. Heart: First heart sound is normal, second heart sound is normal there is systolic ejection murmur 2/6 located in the left sternal border. Abdomen: Soft, nontender, nondistended, positive bowel sounds. Extremities: There is no edema no calf tenderness DP +2 bilaterally. Neurologic examination: Patient is stuporous does not follow commands. ASSESSMENT AND PLAN: 1. Acute hypoxemic respiratory failure likely due to his aspiration pneumonia. Continue oxygen support at 3 L nasal cannula, continue Zosyn 3.375 g IV piggyback every 8 hours, continue Zosyn 500 mg IV piggyback every 24 hours, try to obtain sputum culture, pulmonary consultation, continue DuoNeb 3 mm nebulization 4 times every day, monitor the patient very closely. Start the patient on Solu-Medrol 40 mg IV push every 8 hours. 2. Accidental medication ingestion perhaps the patient did ingest the wrong medications that do not belong to him. With significant metabolic encephalopathy we will continue to monitor the patient very closely, CT scan of the brain is negative, will obtain neurology consultation. 3. Hypertension and hypertensive cardiovascular disease. We will hold off antihypertensive medication at this time as the blood pressure is very soft and the patient is quite stuporous and not safe to put anything by mouth at this point keep the patient on nothing per mouth. 4. Mixed hyperlipidemia. Hold off oral medication including statin. 5. Diabetes mellitus type 2. We will hold off the patient current medications including insulin for now. I will start the patient on sliding scale insulin. I will start the patient back on his insulin Tresiba. 6. Impulsive disorder. We will hold off psychotropic medications for now. 7. Deafness. Has been chronic. 8. Bilateral macular corneal dystrophy. Continue with current eyedrops and eye ointments. 9. Hypothyroidism. Will hold off Synthroid for now. 10. Iron deficiency anemia. We will monitor the patient CBC. 11. DVT prophylaxis. Start the patient on Lovenox 40 mg subcutaneously every 24 hours. 12. GI prophylaxis. Start the patient on Protonix 40 mg IV push every 24 hours. 13. Admit to inpatient. Estimated length of stay 2 midnights. 14. Patient is no code. 15. Social work consultation for discharge planning. 16. Physical therapy evaluation. Past Medical History Past Medical History: Diabetes Mellitus, Deep Vein Thrombosis (DVT), Hyperlipidemia Additional Past Medical History / Comment(s): 2 episodes of urine incontinence and light bleeding in urine, developemental disabled,mental retardation-non verbal-able to sign-needs snowboard designer,able to walk with walker r/t vertigo,deaf History of Any Multi-Drug Resistant Organisms: None Reported Additional Past Surgical History / Comment(s): colonscopy,green field filter Past Anesthesia/Blood Transfusion Reactions: No Reported Reaction Additional Past Anesthesia/Blood Transfusion Reaction / Comment(s): no hx blood transfusion Past Psychological History: No Psychological Hx Reported Smoking Status: Never smoker Past Alcohol Use History: None Reported Past Drug Use History: None Reported - Past Family History Mother Family Medical History: Cancer, Deep Vein Thrombosis (DVT) Additional Family Medical History / Comment(s): breast CA Sister(s) Family Medical History: Cancer Additional Family Medical History / Comment(s): thyroid CA Medications and Allergies Home Medications Medication Instructions Recorded Confirmed Type Citalopram Hydrobromide 40 mg PO DAILY@0630 06/10/14 04/02/24 History [Citalopram HBr] Artificial Tears-Hypromellose 1 drop BOTH EYES TID@0630,1600,2100 10/03/19 05/05/21 History [Artificial Tear Drops] Erythromycin Ophth Oint [Romycin 1 applic BOTH EYES HS 10/03/19 04/02/24 History Ophth Oint] Lovastatin [Mevacor] 80 mg PO DAILY@1700 10/03/19 04/02/24 History Mirabegron [Myrbetriq] 50 mg PO DAILY@0610/03/19 04/02/24 History Tamsulosin [Flomax] 0.4 mg PO DAILY@62910/03/19 04/02/24 History ARIPiprazole [Abilify] 7.5 mg PO HS 04/02/24 04/02/24 History Dextrose Chew [Glucose Chew Tab] 4 gm PO ONCE PRN 04/02/24 04/02/24 History Ferrous Sulfate [Feosol] 325 mg PO BID@0630,1700 04/02/24 04/02/24 History Insulin Degludec [Tresiba 10 units SQ HS 04/02/24 04/02/24 History Flextouch U-100 Pen] Johnsons Baby Shampoo 1 applic BOTH EYES CAMARENA 04/02/24 04/02/24 History Levothyroxine Sodium [Synthroid] 25 mcg PO DAILY@62904/02/24 04/02/24 History Magnesium Oxide [Magox 400] 400 mg PO DAILY@62904/02/24 04/02/24 History Melatonin 5 mg PO HS PRN 04/02/24 04/02/24 History Pantoprazole [Protonix] 40 mg PO DAILY@62904/02/24 04/02/24 History Vit C/E/Zn/Coppr/Lutein/Zeaxan 1 cap PO BID@0630,1700 04/02/24 04/02/24 History [Preservision Areds 2 Softgel] lisinopriL [Zestril] 10 mg PO DAILY@0 04/02/24 04/02/24 History polyethylene glycoL 3350 [Miralax] 17 gm PO DAILY@62904/02/24 04/02/24 History sitaGLIPtin [Januvia] 100 mg PO DAILY@62904/02/24 04/02/24 History Allergies Allergy/AdvReac Type Severity Reaction Status Date / Time codeine Allergy Unknown Verified 04/02/24 18:48 Physical Exam Vitals: Vital Signs Temp Pulse Resp BP Pulse Ox 04/03/24 09:31 105 H 18 102/52 94 L 04/03/24 08:46 105 H 18 123/68 95 04/03/24 08:39 101 H 04/03/24 08:22 101 H 04/03/24 07:43 99.1 F 104 H 18 98/57 95 04/03/24 06:00 111 H 18 104/49 95 04/03/24 05:54 100.0 F H 04/03/24 04:43 122 H 04/03/24 04:26 118 H 04/03/24 04:05 101.4 F H 04/03/24 03:00 117 H 17 115/60 91 L 04/03/24 01:00 128 H 17 151/66 94 L 04/03/24 00:42 99.0 F 04/03/24 00:00 124 H 17 124/62 92 L 04/02/24 21:21 16 04/02/24 20:20 18 04/02/24 19:00 105 H 18 127/67 95 04/02/24 18:32 116 H 26 H 182/89 94 L 04/02/24 18:00 96.5 F L 118 H 12 190/88 95 Intake and Output 04/02/24 04/03/24 04/03/24 22:59 06:59 14:59 Output Total 400 400 550 Balance -400 -400 -550 Output: Urine 400 400 550 Uretheral (Baez) 400 400 550 Other: Weight 57.606 kg Results CBC & Chem 7: 04/02/24 18:15 04/02/24 18:15 Labs: Abnormal Lab Results - Last 24 Hours (Table) 04/02/24 04/02/24 04/02/24 Range/Units 18:04 18:15 18:15 WBC 12.5 H (3.8-10.6) k/uL Neutrophils # 9.5 H (1.3-7.7) k/uL VBG pH (7.31-7.41) VBG HCO3 (24-28) mmol/L BUN 29 H (9-20) mg/dL Glucose 142 H (74-99) mg/dL POC Glucose (mg/dL) 137 H (70-110) mg/dL 04/03/24 04/03/24 Range/Units 00:40 04:06 WBC (3.8-10.6) k/uL Neutrophils # (1.3-7.7) k/uL VBG pH 7.42 H (7.31-7.41) VBG HCO3 29 H (24-28) mmol/L BUN (9-20) mg/dL Glucose (74-99) mg/dL POC Glucose (mg/dL) 153 H (70-110) mg/dL
[2024-04-03] MEDS: methylPREDNISolone SOD SUCCI 40 MG/ML 1 ML VIAL IV SCH (16:18)
--- NOTE | 2024-04-03 16:34 | P.CNPUL ---
History of Present Illness Consult date: 04/03/24 Requesting physician: Giovanna Schwartz Reason for consult: other (Possible accidental overdose) Chief complaint: Altered mental status History of present illness: This is a 58-year-old male patient with a history of diabetes mellitus, DVT, hyperlipidemia, developmental delay, nonverbal, deaf who resides at a local [facility]. He was brought in by EMS yesterday around 6 PM after becoming more obtunded and altered more so than usual. His sister was present and stated he is not to be intubated. The patient may have taken his roommates medications at approximately 430 yesterday afternoon including lorazepam, Amitiza, because clozapine fenofibrate Banophen and lamotrigine. His urine drug screen was negative. Chest x-ray revealed no acute pulmonary process. White count 12.5. Hemoglobin 16.0. Platelets 159. Sodium 138. Potassium 4.1. Bicarb 29. BUN 29. Creatinine 0.81. Glucose 142. Urine Legionella screen negative. Earlier this morning the patient was requiring 3 L of nasal cannula to maintain O2 saturations at 98%. Prior to that he was on 2 L with 94% O2 saturation. There was some concern about possible pneumonia aspiration pneumonia we are consulted for the same. He did have a Tmax of 101.4. Hemodynamically stable. The patient is seen this afternoon in consultation. He is currently on room air. He is awake and alert. Once we placed a stethoscope on his chest he immediately started taking deep breaths for us. Review of Systems ROS unobtainable: due to mental status Past Medical History Past Medical History: Diabetes Mellitus, Deep Vein Thrombosis (DVT), Hyperlipidemia Additional Past Medical History / Comment(s): 2 episodes of urine incontinence and light bleeding in urine, developemental disabled,mental retardation-non verbal-able to sign-needs analog design engineer,able to walk with walker r/t vertigo,deaf History of Any Multi-Drug Resistant Organisms: None Reported Additional Past Surgical History / Comment(s): colonscopy,green field filter Past Anesthesia/Blood Transfusion Reactions: No Reported Reaction Additional Past Anesthesia/Blood Transfusion Reaction / Comment(s): no hx blood transfusion Past Psychological History: No Psychological Hx Reported Smoking Status: Never smoker Past Alcohol Use History: None Reported Past Drug Use History: None Reported - Past Family History Mother Family Medical History: Cancer, Deep Vein Thrombosis (DVT) Additional Family Medical History / Comment(s): breast CA Sister(s) Family Medical History: Cancer Additional Family Medical History / Comment(s): thyroid CA Medications and Allergies Home Medications Medication Instructions Recorded Confirmed Type Citalopram Hydrobromide 40 mg PO DAILY@0630 06/10/14 04/02/24 History [Citalopram HBr] Artificial Tears-Hypromellose 1 drop BOTH EYES TID@0630,1600,2100 10/03/19 04/02/24 History [Artificial Tear Drops] Erythromycin Ophth Oint [Romycin 1 applic BOTH EYES HS 10/03/19 04/02/24 History Ophth Oint] Lovastatin [Mevacor] 80 mg PO DAILY@1700 10/03/19 04/02/24 History Mirabegron [Myrbetriq] 50 mg PO DAILY@62910/03/19 04/02/24 History Tamsulosin [Flomax] 0.4 mg PO DAILY@62910/03/19 04/02/24 History ARIPiprazole [Abilify] 7.5 mg PO HS 04/02/24 04/02/24 History Dextrose Chew [Glucose Chew Tab] 4 gm PO ONCE PRN 04/02/24 04/02/24 History Ferrous Sulfate [Feosol] 325 mg PO BID@0630,1700 04/02/24 04/02/24 History Insulin Degludec [Tresiba 10 units SQ HS 04/02/24 04/02/24 History Flextouch U-100 Pen] Johnsons Baby Shampoo 1 applic BOTH EYES CAMARENA 04/02/24 04/02/24 History Levothyroxine Sodium [Synthroid] 25 mcg PO DAILY@62904/02/24 04/02/24 History Magnesium Oxide [Magox 400] 400 mg PO DAILY@62904/02/24 04/02/24 History Melatonin 5 mg PO HS PRN 04/02/24 04/02/24 History Pantoprazole [Protonix] 40 mg PO DAILY@62904/02/24 04/02/24 History Vit C/E/Zn/Coppr/Lutein/Zeaxan 1 cap PO BID@0630,1700 04/02/24 04/02/24 History [Preservision Areds 2 Softgel] lisinopriL [Zestril] 10 mg PO DAILY@1700 04/02/24 04/02/24 History polyethylene glycoL 3350 [Miralax] 17 gm PO DAILY@62904/02/24 04/02/24 History sitaGLIPtin [Januvia] 100 mg PO DAILY@62904/02/24 04/02/24 History Allergies Allergy/AdvReac Type Severity Reaction Status Date / Time codeine Allergy Unknown Verified 04/02/24 18:48 Physical Exam Vitals: Vital Signs Temp Pulse Resp BP Pulse Ox 04/03/24 15:00 110 H 18 150/71 97 04/03/24 13:00 141/63 04/03/24 12:00 142/68 04/03/24 11:26 98 18 121/51 98 04/03/24 09:31 105 H 18 102/52 94 L 04/03/24 08:46 105 H 18 123/68 95 04/03/24 08:39 101 H 04/03/24 08:22 101 H 04/03/24 07:43 99.1 F 104 H 18 98/57 95 04/03/24 06:00 111 H 18 104/49 95 04/03/24 05:54 100.0 F H 04/03/24 04:43 122 H 04/03/24 04:26 118 H 04/03/24 04:05 101.4 F H 04/03/24 03:00 117 H 17 115/60 91 L 04/03/24 01:00 128 H 17 151/66 94 L 04/03/24 00:42 99.0 F 04/03/24 00:00 124 H 17 124/62 92 L 04/02/24 21:21 16 04/02/24 20:20 18 04/02/24 19:00 105 H 18 127/67 95 04/02/24 18:32 116 H 26 H 182/89 94 L 04/02/24 18:00 96.5 F L 118 H 12 190/88 95 Intake and Output 04/03/24 04/03/24 04/03/24 06:59 14:59 22:59 Output Total 400 550 Balance -400 -550 Output: Urine 400 550 Uretheral (Baez) 400 550 GENERAL EXAM: Alert, active, mentally challenged, deaf 58-year-old nonverbal male patient, on room air, comfortable in no apparent distress. HEAD: Normocephalic. EYES: Normal reaction of pupils, equal size. NOSE: Clear with pink turbinates. THROAT: No erythema or exudates. NECK: No masses, no JVD. CHEST: No chest wall deformity. LUNGS: Equal air entry with no crackles, wheeze, rhonchi or dullness. CVS: S1 and S2 normal with no audible murmur, regular rhythm. ABDOMEN: No hepatosplenomegaly, normal bowel sounds, no guarding or rigidity. SPINE: No scoliosis or deformity SKIN: No rashes CENTRAL NERVOUS SYSTEM: No focal deficits, tone is normal in all 4 extremities. EXTREMITIES: There is no peripheral edema. No clubbing, no cyanosis. Peripheral pulses are intact. Results - Laboratory Findings CBC and BMP: 04/02/24 18:15 04/02/24 18:15 Abnormal lab findings: Abnormal Labs 04/02/24 04/02/24 04/02/24 18:04 18:15 18:15 WBC 12.5 H Neutrophils # 9.5 H VBG pH VBG HCO3 BUN 29 H Glucose 142 H POC Glucose (mg/dL) 137 H 04/03/24 04/03/24 00:40 04:06 WBC Neutrophils # VBG pH 7.42 H VBG HCO3 29 H BUN Glucose POC Glucose (mg/dL) 153 H - Diagnostic Findings Chest x-ray: image reviewed Assessment and Plan Assessment: Altered mental status possibly secondary to accidental overdose however the patient's drug screen was negative completely Acute hypoxemic respiratory failure suspect secondary to aspiration. Chest x- rays revealed no acute pulmonary process. Procalcitonin pending Febrile illness secondary to above History of impulsive disorder History of deafness Macular corneal dystrophy bilaterally Mentally challenged and nonverbal Hypertension Hyperlipidemia Diabetes mellitus Hypothyroidism Iron deficiency anemia Plan: The patient was seen and evaluated Chest x-rays, labs and medications reviewed Drug screen negative Awake and alert today Procalcitonin pending Continue Zosyn for now Currently stable and on room air We will continue to follow and make further recommendations based on his clinical status I have personally seen and examined the patient, performed the documentation and the assessment and plan as written. Number of minutes spent on the visit: 20.
[2024-04-03 17:40] LABS: Glucose,Whole Blood 100 mg/dL (70-110)
[2024-04-03] MEDS: ARTIFICIAL TEARS-HYPROMELLOSE DROPS 15 ML BTL BOTH EYES SCH (18:34)
--- NOTE | 2024-04-03 18:41 | P.CNNES ---
History of Present Illness Consult date: 04/03/24 Requesting physician: Giovanna Schwartz Reason for Consult: metabolic encephalopathy History of Present Illness: This is a 58-year-old gentleman who presents to the emergency department because of confusion and possible aspiration pneumonia. Some of the history is obtained from his sister who is at bedside. The patient is deaf with cognitive impairment. The patient resides in a long-term and it seems, he was accidentally given another residents medications and result patient aspirated per the sister and was confused. It seems he was given lorazepam, amitrza, clozapine, lamotrigine, banophen and fenofibrate. Patient came obtunded according to EMS. He was vomiting and it seems the staff weere trying to feed him. It seems he was more obtunded than baseline. Per the sister, currently patient is neurologically back to baseline or close to it. She denies patient has any history of seizures or stroke. He communicates thru sign language. Some of the work-up during this hospital visit consisted of: Plasma lactic acid veing is 1.0 Glucose POC is 137 I reviewed rest of work-up. CT head is reported as no significant abnormality seen. There is no acute bleed or mass effect. I personally reviewed CT head and agree with report. CXR is not acute process. UDS is not detected. Review of Systems The positive and negative as per HPI. Past Medical History Past Medical History: Diabetes Mellitus, Deep Vein Thrombosis (DVT), Hyperlipidemia Additional Past Medical History / Comment(s): 2 episodes of urine incontinence and light bleeding in urine, developemental disabled,mental retardation-non verbal-able to sign-needs design teacher,able to walk with walker r/t vertigo,deaf History of Any Multi-Drug Resistant Organisms: None Reported Additional Past Surgical History / Comment(s): colonscopy,green field filter Past Anesthesia/Blood Transfusion Reactions: No Reported Reaction Additional Past Anesthesia/Blood Transfusion Reaction / Comment(s): no hx blood transfusion Past Psychological History: No Psychological Hx Reported Smoking Status: Never smoker Past Alcohol Use History: None Reported Past Drug Use History: None Reported - Past Family History Mother Family Medical History: Cancer, Deep Vein Thrombosis (DVT) Additional Family Medical History / Comment(s): breast CA Sister(s) Family Medical History: Cancer Additional Family Medical History / Comment(s): thyroid CA Medications and Allergies Home Medications Medication Instructions Recorded Confirmed Type Citalopram Hydrobromide 40 mg PO DAILY@0606/10/14 04/02/24 History [Citalopram HBr] Artificial Tears-Hypromellose 1 drop BOTH EYES TID@0630,1600,2100 10/03/19 04/02/24 History [Artificial Tear Drops] Erythromycin Ophth Oint [Romycin 1 applic BOTH EYES HS 10/03/19 04/02/24 History Ophth Oint] Lovastatin [Mevacor] 80 mg PO DAILY@1700 10/03/19 04/02/24 History Mirabegron [Myrbetriq] 50 mg PO DAILY@62910/03/19 04/02/24 History Tamsulosin [Flomax] 0.4 mg PO DAILY@62910/03/19 04/02/24 History ARIPiprazole [Abilify] 7.5 mg PO HS 04/02/24 04/02/24 History Dextrose Chew [Glucose Chew Tab] 4 gm PO ONCE PRN 04/02/24 04/02/24 History Ferrous Sulfate [Feosol] 325 mg PO BID@0630,1700 04/02/24 04/02/24 History Insulin Degludec [Tresiba 10 units SQ HS 04/02/24 04/02/24 History Flextouch U-100 Pen] Johnsons Baby Shampoo 1 applic BOTH EYES CAMARENA 04/02/24 04/02/24 History Levothyroxine Sodium [Synthroid] 25 mcg PO DAILY@62904/02/24 04/02/24 History Magnesium Oxide [Magox 400] 400 mg PO DAILY@62904/02/24 04/02/24 History Melatonin 5 mg PO HS PRN 04/02/24 04/02/24 History Pantoprazole [Protonix] 40 mg PO DAILY@62904/02/24 04/02/24 History Vit C/E/Zn/Coppr/Lutein/Zeaxan 1 cap PO BID@0630,1700 04/02/24 04/02/24 History [Preservision Areds 2 Softgel] lisinopriL [Zestril] 10 mg PO DAILY@0 04/02/24 04/02/24 History polyethylene glycoL 3350 [Miralax] 17 gm PO DAILY@62904/02/24 04/02/24 History sitaGLIPtin [Januvia] 100 mg PO DAILY@62904/02/24 04/02/24 History Allergies Allergy/AdvReac Type Severity Reaction Status Date / Time codeine Allergy Unknown Verified 04/02/24 18:48 Physical Examination - Vital Signs Vital Signs: Vital Signs Temp Pulse Pulse Resp BP BP Pulse Ox 04/03/24 16:50 99.2 F 104 H 16 169/82 95 04/03/24 15:00 110 H 18 150/71 97 04/03/24 13:00 141/63 04/03/24 12:00 142/68 04/03/24 11:26 98 18 121/51 98 04/03/24 09:31 105 H 18 102/52 94 L 04/03/24 08:46 105 H 18 123/68 95 04/03/24 08:39 101 H 04/03/24 08:22 101 H 04/03/24 07:43 99.1 F 104 H 18 98/57 95 04/03/24 06:00 111 H 18 104/49 95 04/03/24 05:54 100.0 F H 04/03/24 04:43 122 H 04/03/24 04:26 118 H 04/03/24 04:05 101.4 F H 04/03/24 03:00 117 H 17 115/60 91 L 04/03/24 01:00 128 H 17 151/66 94 L 04/03/24 00:42 99.0 F 04/03/24 00:00 124 H 17 124/62 92 L 04/02/24 21:21 16 04/02/24 20:20 18 04/02/24 19:00 105 H 18 127/67 95 04/02/24 18:32 116 H 26 H 182/89 94 L Intake and Output 04/03/24 04/03/24 04/03/24 06:59 14:59 22:59 Output Total 400 550 Balance -400 -550 Output: Urine 400 550 Uretheral (Baez) 400 550 Other: Weight 57.606 kg General: Lying in bed and is not in acute distress. Neuro: His sister help with examination and communicating thru sign language. Patient is mildly drowsy but is awakeable to voice. Is oriented to self (baseline oriented to self only). Is following simple commands (smiling, sticking tongue out, closing eyes). Pupils are 2-3mm and reactive to light. Visual leon are full to confrontation. No facial weakness. Motor: Strength is lifting bilateral uppers above gravity. Lowers is limited because of cooperation but wiggling toes. Plantars: Mute. Results - Laboratory Findings CBC and BMP: 04/02/24 18:15 04/02/24 18:15 Abnormal Lab Findings: Abnormal Labs 04/02/24 04/02/24 04/02/24 18:04 18:15 18:15 WBC 12.5 H Neutrophils # 9.5 H VBG pH VBG HCO3 BUN 29 H Glucose 142 H POC Glucose (mg/dL) 137 H 04/03/24 04/03/24 00:40 04:06 WBC Neutrophils # VBG pH 7.42 H VBG HCO3 29 H BUN Glucose POC Glucose (mg/dL) 153 H Assessment and Plan Assessment: This is a 58 y/o gentleman who was accidently given another resident's medic ations and result was obtunded and vomited. Per sister he is back or close to his baseline. Altered mental status due to accident overdose/Toxic encephalopathy Possible aspiration Underlying cognitive impairement (baseline oriented X1). Deaf Hypertension Diabetes Mellitus Plan: I ordered routine EEG. Ordered ammonia level. CT head is unremarkable. Pulmonary team is consulted. Will defer the rest of medical management to primary and other specialist. The plan is discussed with his sister who is at bedside. Thank you for the consultation. Time with Patient: Greater than 30
[2024-04-03] MEDS ORDERED: MELATONIN 5 MG TABLET PO PRN (19:40)
[2024-04-03] MEDS ORDERED: DEXTROSE 4 GM CHEWABLE PO PRN (19:40)
[2024-04-03 20:31] LABS: Glucose,Whole Blood 296 mg/dL (70-110)
[2024-04-03] MEDS: AZITHROMYCIN 500 MG in SODIUM CHLORIDE 0.9% 250 ML IVPB SCH (20:47)
[2024-04-03] MEDS: ARIPiprazole 15 MG TAB PO SCH (20:48)
[2024-04-03] MEDS: INSULIN DETEMIR (LEVEMIR) 100 UNIT/ML SYR SQ SCH (20:48)
[2024-04-03] MEDS: ERYTHROMYCIN 5 MG/GM OPHTH OINT 3.5 GM TUBE BOTH EYES SCH (20:49)
[2024-04-03] MEDS: BUDESONIDE 1 MG/2 ML NEBU INHALATION SCH (21:34)
--- NOTE | 2024-04-03 21:36 | EEG ---
ELECTROENCEPHALOGRAM REPORT CLINICAL HISTORY: This is a 58-year-old gentleman with altered mental status. The video EEG is obtained to evaluate for seizure epileptiform activity. RELEVANT MEDICATION: The patient is on Abilify. EEG TYPE: This is a routine 21-channel EEG with video using the 10/20 electrode placement system. DESCRIPTION: Wakefulness is obtained. During awake state, the posterior-dominant rhythm consists of [id number] voltage of 8.5 to 9 hertz activity that is well modulated and well sustained. There is no physiological stage 2 sleep architecture. There is no focal slowing. Interictal and ictal is none. ACTIVATION PROCEDURE: There is no focal slowing noted during the photic stimulation. There is no abnormality noted. Hyperventilation is not performed. CLINICAL INTERPRETATION: This is a normal routine EEG. There is no focal slowing, epileptiform discharge, or seizure on the EEG. A normal routine EEG does not rule out underlying epilepsy. Clinical correlation is recommended. HOLLIE / WENDY: [id number] /
[2024-04-04] MEDS: PATIENT'S OWN (Mirabegron [Myrbetriq] 50 MG Tab.Er.24h) PO SCH (06:37)
[2024-04-04] MEDS: VIT A,C & E-LUTEIN-MINERALS 1 EACH TAB PO SCH (06:38)
[2024-04-04] MEDS: TAMSULOSIN 0.4 MG CAP.ER.24H PO SCH (06:38)
[2024-04-04] MEDS: MAGNESIUM OXIDE 400 MG TAB PO SCH (06:38)
[2024-04-04] MEDS: CITALOPRAM HYDROBROMIDE 20 MG TAB PO SCH (06:38)
[2024-04-04] MEDS: FERROUS SULFATE 325 MG TAB PO SCH (06:38)
[2024-04-04] MEDS: LEVOTHYROXINE 25 MCG TAB PO SCH (06:38)
[2024-04-04] MEDS: LINAGLIPTIN 5 MG TABLET PO SCH (06:38)
[2024-04-04] MEDS: polyethylene glycoL 3350 17 GM POWD.PACK PO SCH (06:44)
[2024-04-04 07:18] LABS: Glucose,Whole Blood 146 mg/dL (70-110)
[2024-04-04] MEDS: PANTOPRAZOLE 40 MG/10 ML VIAL IVP SCH (07:47)
[2024-04-04] MEDS: ENOXAPARIN 40 MG/0.4 ML SYRINGE SQ SCH (07:47)
[2024-04-04 10:54] LABS: Basophils # (A) 0.01 X 10*3/uL (0.00-0.10); Basophils % (A) 0.1 %; Eosinophils # (A) 0 X 10*3/uL (0.04-0.35); Eosinophils % (A) 0 %; HCT 49.5 % (39.6-50.0); HGB 16.1 g/dL (13.0-17.0); Lymphocytes # (A) 0.34 X 10*3/uL (0.90-5.00); Lymphocytes % (A) 3.6 %; MCH 27.8 pg (27.0-32.0); MCHC 32.5 g/dL (32.0-37.0); MCV 85.5 FL (80.0-97.0); Mean Platelet Volume 9.1 FL (9.5-12.2); Monocytes # (A) 0.14 X 10*3/uL (0.20-1.00); Monocytes % (A) 1.5 %; NRBC Per 100 WBC 0 X 10*3/uL (0.00-0.01); Neutrophils % (A) 94.5 %; Platelet Count 178 X 10*3/uL (140-440); RBC 5.79 X 10*6/uL (4.40-5.60); RDW 12.8 % (11.5-14.5); WBC 9.42 X 10*3/uL (4.50-10.00)
--- NOTE | 2024-04-04 11:09 | P.PN ---
Subjective Progress Note Date: 04/04/24 This is a 58-year-old male patient with a history of diabetes mellitus, DVT, hyperlipidemia, developmental delay, nonverbal, deaf who resides at a local custodial. He was brought in by EMS yesterday around 6 PM after becoming more obtunded and altered more so than usual. His sister was present and stated he is not to be intubated. The patient may have taken his roommates medications at approximately 430 yesterday afternoon including lorazepam, Amitiza, because clozapine fenofibrate Banophen and lamotrigine. His urine drug screen was negative. Chest x-ray revealed no acute pulmonary process. White count 12.5. Hemoglobin 16.0. Platelets 159. Sodium 138. Potassium 4.1. Bicarb 29. BUN 29. Creatinine 0.81. Glucose 142. Urine Legionella screen negative. Earlier this morning the patient was requiring 3 L of nasal cannula to maintain O2 saturations at 98%. Prior to that he was on 2 L with 94% O2 saturation. There was some concern about possible pneumonia aspiration pneumonia we are consulted for the same. He did have a Tmax of 101.4. Hemodynamically stable. The patient is seen this afternoon in consultation. He is currently on room air. He is awake and alert. Once we placed a stethoscope on his chest he immediately started taking deep breaths for us. The patient is seen today April 04, 2024 in follow-up on the regular medical floor. He is currently sitting up in bed. Awake and alert in no acute distress. His sister is at the bedside and is able to communicate with sign language with the patient. No worsening shortness of breath, cough or congestion. He continues to maintain good O2 saturations in the 90s on room air. He is afebrile. Hemodynamically stable. EEG was read as normal. No focal slowing, epileptic discharge or seizure on the EEG. Blood cultures revealed no growth. White count 9.4. Hemoglobin 16.1. Platelets 178. Glucose 146. Procalcitonin pending. He remains on Zosyn and azithromycin. Continued on bronchodilators as needed. Remains on Solu-Medrol. Lovenox for DVT prophylaxis. Objective - Vital Signs Vital signs: Vital Signs Temp 98.7 F 04/04/24 07:40 Pulse 100 04/04/24 09:28 Resp 16 05/08/24 07:40 BP 167/76 04/04/24 07:40 Pulse Ox 94 L 04/04/24 07:40 FiO2 Intake & Output 04/03/24 04/04/24 04/04/24 18:59 06:59 18:59 Output Total 1200 Balance -1200 Weight 57.606 kg Output: Urine 1200 Uretheral (Baez) 550 Other: Voiding Method Bedside Commode Bedside Commode Urinal Urinal Diaper Diaper Incontinent Incontinent # Voids 3 # Bowel Movements 1 - Exam GENERAL EXAM: Alert, deaf 58-year-old nonverbal male patient, on room air, in no apparent distress. HEAD: Normocephalic. EYES: Normal reaction of pupils, equal size. NOSE: Clear with pink turbinates. THROAT: No erythema or exudates. NECK: No masses, no JVD. CHEST: No chest wall deformity. LUNGS: Equal air entry with no crackles, wheeze, rhonchi or dullness. CVS: S1 and S2 normal with no audible murmur, regular rhythm. ABDOMEN: No hepatosplenomegaly, normal bowel sounds, no guarding or rigidity. SPINE: No scoliosis or deformity SKIN: No rashes CENTRAL NERVOUS SYSTEM: No focal deficits, tone is normal in all 4 extremities. EXTREMITIES: There is no peripheral edema. No clubbing, no cyanosis. Peripheral pulses are intact. - Labs CBC & Chem 7: 04/04/24 07:09 04/02/24 18:15 Labs: Abnormal Lab Results - Last 24 Hours (Table) 04/03/24 04/04/24 04/04/24 Range/Units 20:29 07:09 07:16 RBC 5.79 H (4.40-5.60) X 10*6/uL MPV 9.1 L (9.5-12.2) FL Neutrophils # 8.90 H (1.80-7.70) X 10*3/uL Lymphocytes # 0.34 L (0.90-5.00) X 10*3/uL Monocytes # 0.14 L (0.20-1.00) X 10*3/uL Eosinophils # 0 L (0.04-0.35) X 10*3/uL POC Glucose (mg/dL) 296 H 146 H (70-110) mg/dL Microbiology - Last 24 Hours (Table) 04/02/24 21:55 Blood Culture - Preliminary Blood 04/02/24 21:40 Blood Culture - Preliminary Blood 04/02/24 18:10 Blood Culture - Preliminary Blood Assessment and Plan Assessment: Altered mental status possibly secondary to accidental overdose however the patient's drug screen was negative completely. The patient is awake and alert Acute hypoxemic respiratory failure suspect secondary to aspiration. Recovered and on room air. Chest x-rays revealed no acute pulmonary process. Procalcitonin pending Febrile illness secondary to above, recovered History of impulsive disorder History of deafness Macular corneal dystrophy bilaterally Mentally challenged and nonverbal Hypertension Hyperlipidemia Diabetes mellitus Hypothyroidism Iron deficiency anemia Plan: The patient was seen and evaluated Labs and medications reviewed Awake and alert Communicating through sign language with his sister Currently stable and on room air Plan is for a new custodial upon discharge This patient was seen independently by the pulmonary nurse practitioner addressing pulmonary issues I have personally seen and examined the patient, performed the documentation and the assessment and plan as written. Number of minutes spent on the visit: 24.
[2024-04-04 11:29] LABS: ALT 28 U/L (10-49); AST 45 U/L (14-35); Alkaline Phosphatase 64 U/L (41-126); BUN/Creat Ratio 18.67 Ratio (12.00-20.00); Blood Urea Nitrogen 16.8 mg/dL (9.0-27.0); Calcium 9.2 mg/dL (8.7-10.3); Carbon Dioxide 23.9 mmol/L (21.6-31.8); Chloride 102 mmol/L (96-109); Globulin 2.5 g/dL (1.6-3.3); Glucose 142 mg/dL (70-110); Potassium 4.5 mmol/L (3.5-5.5); Sodium 141 mmol/L (135-145); Total Bilirubin 0.6 mg/dL (0.3-1.2); Total Protein 6.5 g/dL (6.2-8.2)
[2024-04-04 11:57] LABS: Glucose,Whole Blood 368 mg/dL (70-110)
--- NOTE | 2024-04-04 13:48 | P.PN ---
Subjective Progress Note Date: 04/04/24 I am following up with the patient and he is accompanied with his sister who feels he continues to be back at baseline. No further neurological issues. Objective - Vital Signs Vital signs: Vital Signs Temp 98.7 F 04/04/24 07:40 Pulse 100 04/04/24 09:28 Resp 16 04/04/24 07:40 BP 167/76 04/04/24 07:40 Pulse Ox 94 L 04/04/24 07:40 FiO2 Intake & Output 04/03/24 04/04/24 04/04/24 18:59 06:59 18:59 Output Total 1200 300 Balance -1200 -300 Weight 57.606 kg Output: Urine 1200 300 Uretheral (Baez) 550 Other: Voiding Method Bedside Commode Bedside Commode Urinal Urinal Diaper Diaper Incontinent Incontinent # Voids 3 # Bowel Movements 1 - Exam General: Lying in bed and is not in acute distress. Neuro: His sister help with examination and communicating thru sign language. Patient is awake, Is oriented to self (baseline oriented to self only). Is following few simple commands. Pupils are 2-3mm and reactive to light. Visual leon are full to confrontation. No facial weakness. Motor: Strength is lifting bilateral uppers above gravity. Lowers is limited because of cooperation but wiggling toes. Plantars: Mute. Some of the work-up during this hospital visit consisted of: Plasma lactic acid veing is 1.0 Glucose POC is 137 Ammonia <9 I reviewed rest of work-up. CT head is reported as no significant abnormality seen. There is no acute bleed or mass effect. I personally reviewed CT head and agree with report. CXR is not acute process. UDS is not detected. Routine EEG is normal. - Labs CBC & Chem 7: 04/04/24 07:09 04/04/24 07:09 Labs: Abnormal Lab Results - Last 24 Hours (Table) 04/03/24 04/04/24 04/04/24 Range/Units 20:29 07:09 07:09 RBC 5.79 H (4.40-5.60) X 10*6/uL MPV 9.1 L (9.5-12.2) FL Neutrophils # 8.90 H (1.80-7.70) X 10*3/uL Lymphocytes # 0.34 L (0.90-5.00) X 10*3/uL Monocytes # 0.14 L (0.20-1.00) X 10*3/uL Eosinophils # 0 L (0.04-0.35) X 10*3/uL Anion Gap (4.00-12.00) mmol/L Glucose (70-110) mg/dL POC Glucose (mg/dL) 296 H (70-110) mg/dL AST (14-35) U/L Procalcitonin 0.48 H (0.02-0.09) ng/mL 04/04/24 04/04/24 04/04/24 Range/Units 07:09 07:16 11:56 RBC (4.40-5.60) X 10*6/uL MPV (9.5-12.2) FL Neutrophils # (1.80-7.70) X 10*3/uL Lymphocytes # (0.90-5.00) X 10*3/uL Monocytes # (0.20-1.00) X 10*3/uL Eosinophils # (0.04-0.35) X 10*3/uL Anion Gap 15.10 H (4.00-12.00) mmol/L Glucose 142 H (70-110) mg/dL POC Glucose (mg/dL) 146 H 368 H (70-110) mg/dL AST 45 H (14-35) U/L Procalcitonin (0.02-0.09) ng/mL Microbiology - Last 24 Hours (Table) 04/02/24 21:55 Blood Culture - Preliminary Blood 04/02/24 21:40 Blood Culture - Preliminary Blood 04/02/24 18:10 Blood Culture - Preliminary Blood Assessment and Plan Assessment: This is a 58 y/o gentleman who was accidently given another resident's medications and result was obtunded and vomited. Per sister he is back or close to his baseline. Altered mental status due to accident overdose/Toxic encephalopathy Possible aspiration Underlying cognitive impairement (baseline oriented X1). Deaf Hypertension Diabetes Mellitus Plan: CT head and routine EEG is unremarkable. Pulmonary team is consulted. Will defer the rest of medical management to primary and other specialist. The plan is discussed with his sister who is at bedside. There is no further neurological workup. Will sign off. Please reconsult if needed Time with Patient: Less than 30
[2024-04-04] MEDS: ATORVASTATIN 20 MG TAB PO SCH (16:08)
[2024-04-04] MEDS: lisinopriL 10 MG TAB PO SCH (16:08)
[2024-04-04 17:09] LABS: Glucose,Whole Blood 198 mg/dL (70-110)
[2024-04-04 20:07] LABS: Glucose,Whole Blood 210 mg/dL (70-110)
--- NOTE | 2024-04-04 20:09 | P.PN ---
Subjective Progress Note Date: 04/04/24 HISTORY OF PRESENT ILLNESS: This is a 58-year-old male with a previous medical history significant for hypertension and hypertensive cardiovascular disease, hyperlipidemia, history of diabetes mellitus type 2, history of impulsive disorder with deafness, history of bilateral carpal tunnel syndrome, patient lives in a fci, apparently the patient yesterday was given accidentally medications do not belong to him and he was getting fed by the caregiver at the fci, patient ended up becoming quite lethargic and not responsive, EMS was called and the patient was brought into the emergency department at [facility] had a CT scan of the brain did not show evidence of acute abnormalities, chest x-ray showed possible haziness in the right middle lobe, because of the presentation patient was quite stuporous not arousable, family were at the bedside, they were offered the patient to be intubated at this point in time, but they were reluctant to have an intubation as the patient is DO NOT RESUSCITATE at this point in time, therefore the patient was started on oxygen, he is currently on 2 L nasal cannula, his oxygen saturation anywhere between 91 and 94%, patient was started on IV antibiotic in the form of Zithromax as well as Zosyn, he will be seen in consultation by pulmonary medicine as well as by neurology, for his metabolic encephalopathy, I spoke with the sister at the bedside, she is planning to transfer the patient from this current fci to a different home after he leaves the hospital he is going home with her. 04/04: Patient is sitting up in the chair no apparent distress, he is more awake and more alert today, he appears to be at baseline, his sister was at the bedside, she was concerned about his left thumb that appears to have a pustule and it and significant fluid fluid collection at the tip of the thumb and on the side of the nail, suggestive of minimal abscess, we will consult hand surgery for incision and drainage, continue IV antibiotic in the form of Zosyn for now, I will follow-up with the patient very closely. REVIEW OF SYSTEMS: Constitutional: Patient is more awake and alert today, does not appear to be in acute distress. EENT: Patient has chronic deafness does not appear to be in acute distress. Lungs: There is no coughing, hemoptysis, no pleurisy or shortness of breath. Cardiovascular: Patient has no chest pain, shortness of breath, no orthopnea PND no edema. Abdominal: Reports no abdominal pain. Episode of nausea, and vomiting. No diarrhea. No constipation. No bloody or tarry stools reports loss of appetite. Genitourinary: No dysuria, increased frequency, urgency. No urinary retention. Baez catheter in place. Musculoskeletal: No myalgias. No muscle weakness, no gait dysfunction, no frequent falls. No back pain. No neck pain. Integumentary: No wounds, no lesions. No rash or pruritus. No unusual bruising. No change in hair or nails. Neurologic: No aphasia. No facial droop. Positive for change in mentation. No head injury. Psychiatric: Impulsive disorder with deafness. Endocrine: No abnormal blood sugars. No weight change. PHYSICAL EXAMINATION: General: This is a 58-year-old male sitting up in the chair at baseline. HEENT: Head is atraumatic, normocephalic, clear and nonicteric, conjunctiva slightly pale, mucous membranes of the mouth are moist. Neck: Supple, no JVP, normal carotid upstroke bilaterally, no lymphadenopathy. Chest: Decreased breath sounds at the bases, few rhonchi, no expiratory wheezes, no chest wall tenderness, no intercostal retractions. Heart: First heart sound is normal, second heart sound is normal there is systolic ejection murmur 2/6 located in the left sternal border. Abdomen: Soft, nontender, nondistended, positive bowel sounds. Extremities: There is no edema no calf tenderness DP +2 bilaterally, left thumb with abscess Neurologic examination: Patient is alert and oriented x 2, patient appears to be at baseline, deaf, moves all his extremities. ASSESSMENT AND PLAN: 1. Acute hypoxemic respiratory failure likely due to his aspiration pneumonia. Patient is not requiring any oxygen at this time he is currently on room air, continue with Zosyn 3.375 g piggyback every 8 hours, continue patient on Solu- Medrol will decrease the dose to 40 mg IV push every 12 hours, continue nebulized treatment as needed, follow-up with the patient, cultures are still pending at the time of dictation, continue patient on Zithromax 500 mg orally once every day. 2. Accidental medication ingestion perhaps the patient did ingest the wrong medications that do not belong to him. Patient appears to be back to baseline his urine drug screen is negative. 3. Hypertension and hypertensive cardiovascular disease. Continue patient on lisinopril 10 mg once every day monitor the patient blood pressure very closely. 4. Mixed hyperlipidemia. Continue patient on atorvastatin 20 mg once every day, monitor lipid panel. 5. Diabetes mellitus type 2. Continue patient on Levemir 10 units at bedtime along with a sliding scale insulin, continue linagliptin 5 mg orally once every day, monitor the patient blood glucose level before each meal and at bedtime 6. Impulsive disorder. Will continue Abilify 7.5 mg orally once every day. 7. Deafness. Has been chronic. 8. Bilateral macular corneal dystrophy. Continue with current eyedrops and eye ointments. 9. Hypothyroidism. Continue levothyroxine 25 mcg orally once every day. 10. Iron deficiency anemia. We will monitor the patient CBC. Continue iron 325 mg orally twice every day. 11. DVT prophylaxis. Continue patient on on Lovenox 40 mg subcutaneously every 24 hours. 12. GI prophylaxis. continue patient on Protonix 40 mg IV push every 24 hours. 13. Physical therapy evaluation. 14. break out worker consultation for discharge planning. 15. Left thumb abscess. Continue IV antibiotic, consult hand surgery Dr. Bundy for I&D. Objective - Vital Signs Vital signs: Vital Signs Temp 100.0 F H 04/04/24 13:32 Pulse 129 H 04/04/24 13:32 Resp 20 04/04/24 13:32 BP 144/68 04/04/24 13:32 Pulse Ox 94 L 04/04/24 13:32 FiO2 Intake & Output 04/03/24 04/04/24 04/04/24 18:59 06:59 18:59 Output Total 1200 300 Balance -1200 -300 Weight 57.606 kg Output: Urine 1200 300 Uretheral (Baez) 550 Other: Voiding Method Bedside Commode Bedside Commode Urinal Urinal Diaper Diaper Incontinent Incontinent # Voids 3 2 # Bowel Movements 1 - Labs CBC & Chem 7: 04/04/24 07:09 04/04/24 07:09 Labs: Abnormal Lab Results - Last 24 Hours (Table) 04/03/24 04/04/24 04/04/24 Range/Units 20:29 07:09 07:09 RBC 5.79 H (4.40-5.60) X 10*6/uL MPV 9.1 L (9.5-12.2) FL Neutrophils # 8.90 H (1.80-7.70) X 10*3/uL Lymphocytes # 0.34 L (0.90-5.00) X 10*3/uL Monocytes # 0.14 L (0.20-1.00) X 10*3/uL Eosinophils # 0 L (0.04-0.35) X 10*3/uL Anion Gap (4.00-12.00) mmol/L Glucose (70-110) mg/dL POC Glucose (mg/dL) 296 H (70-110) mg/dL AST (14-35) U/L Procalcitonin 0.48 H (0.02-0.09) ng/mL 04/04/24 04/04/24 04/04/24 Range/Units 07:09 07:16 11:56 RBC (4.40-5.60) X 10*6/uL MPV (9.5-12.2) FL Neutrophils # (1.80-7.70) X 10*3/uL Lymphocytes # (0.90-5.00) X 10*3/uL Monocytes # (0.20-1.00) X 10*3/uL Eosinophils # (0.04-0.35) X 10*3/uL Anion Gap 15.10 H (4.00-12.00) mmol/L Glucose 142 H (70-110) mg/dL POC Glucose (mg/dL) 146 H 368 H (70-110) mg/dL AST 45 H (14-35) U/L Procalcitonin (0.02-0.09) ng/mL Microbiology - Last 24 Hours (Table) 04/02/24 21:55 Blood Culture - Preliminary Blood 04/02/24 21:40 Blood Culture - Preliminary Blood 04/02/24 18:10 Blood Culture - Preliminary Blood
[2024-04-04] MEDS: INSULIN ASPART (NovoLOG) 100 UNIT/ML VIAL SQ SCH (20:21)
[2024-04-04] MEDS ORDERED: methylPREDNISolone SOD SUCCI 40 MG/ML 1 ML VIAL IV SCH (21:00)
[2024-04-05 07:26] LABS: Glucose,Whole Blood 127 mg/dL (70-110)
[2024-04-05] MEDS: methylPREDNISolone SOD SUCCI 40 MG/ML 1 ML VIAL IV SCH (09:51)
--- NOTE | 2024-04-05 10:03 | XR ---
EXAMINATION TYPE: XR chest 1V portable DATE OF EXAM: 04/05/2024 8:30 AM CLINICAL INDICATION:Male, 58 years old with history of Aspiration pneumonia; [facility] COMPARISON: Chest radiographs from 04/03/2024. TECHNIQUE: XR chest 1V portable Frontal view of the chest. FINDINGS: Lungs/Pleura: Bibasilar airspace opacities new from prior. There is no evidence of pleural effusion, focal consolidation, or pneumothorax. Pulmonary vascularity: Unremarkable. Heart/mediastinum: Cardiomediastinal silhouette is unremarkable. Musculoskeletal: No acute osseous pathology. IMPRESSION: Bibasilar airspace opacities compatible with pneumonia.
[2024-04-05 10:25] LABS: Basophils # (A) 0.02 X 10*3/uL (0.00-0.10); Basophils % (A) 0.1 %; Eosinophils # (A) 0.01 X 10*3/uL (0.04-0.35); Eosinophils % (A) 0.1 %; HCT 46.2 % (39.6-50.0); HGB 14.8 g/dL (13.0-17.0); Lymphocytes # (A) 1.54 X 10*3/uL (0.90-5.00); Lymphocytes % (A) 9.3 %; MCH 27.2 pg (27.0-32.0); MCV 84.9 FL (80.0-97.0); Mean Platelet Volume 9.5 FL (9.5-12.2); Monocytes # (A) 1.37 X 10*3/uL (0.20-1.00); Monocytes % (A) 8.3 %; NRBC Per 100 WBC 0 X 10*3/uL (0.00-0.01); Neutrophils # (A) 13.49 X 10*3/uL (1.80-7.70); Neutrophils % (A) 81.7 %; Platelet Count 201 X 10*3/uL (140-440); RBC 5.44 X 10*6/uL (4.40-5.60); WBC 16.51 X 10*3/uL (4.50-10.00)
[2024-04-05 11:10] LABS: ALT 28 U/L (10-49); AST 36 U/L (14-35); Albumin/Globulin Ratio 1.74 Ratio (1.60-3.17); Alkaline Phosphatase 63 U/L (41-126); Blood Urea Nitrogen 17.8 mg/dL (9.0-27.0); Calcium 9.5 mg/dL (8.7-10.3); Carbon Dioxide 27.1 mmol/L (21.6-31.8); Chloride 104 mmol/L (96-109); Globulin 2.3 g/dL (1.6-3.3); Glucose 135 mg/dL (70-110); Potassium 4.3 mmol/L (3.5-5.5); Sodium 142 mmol/L (135-145); Total Bilirubin 0.7 mg/dL (0.3-1.2); Total Protein 6.3 g/dL (6.2-8.2)
--- NOTE | 2024-04-05 12:15 | P.PN ---
Subjective Progress Note Date: 04/05/24 This is a 58-year-old male patient with a history of diabetes mellitus, DVT, hyperlipidemia, developmental delay, nonverbal, deaf who resides at a local [facility]. He was brought in by EMS yesterday around 6 PM after becoming more obtunded and altered more so than usual. His sister was present and stated he is not to be intubated. The patient may have taken his roommates medications at approximately 430 yesterday afternoon including lorazepam, Amitiza, because clozapine fenofibrate Banophen and lamotrigine. His urine drug screen was negative. Chest x-ray revealed no acute pulmonary process. White count 12.5. Hemoglobin 16.0. Platelets 159. Sodium 138. Potassium 4.1. Bicarb 29. BUN 29. Creatinine 0.81. Glucose 142. Urine Legionella screen negative. Earlier this morning the patient was requiring 3 L of nasal cannula to maintain O2 saturations at 98%. Prior to that he was on 2 L with 94% O2 saturation. There was some concern about possible pneumonia aspiration pneumonia we are consulted for the same. He did have a Tmax of 101.4. Hemodynamically stable. The patient is seen this afternoon in consultation. He is currently on room air. He is awake and alert. Once we placed a stethoscope on his chest he immediately started taking deep breaths for us. The patient is seen today April 04, 2024 in follow-up on the regular medical floor. He is currently sitting up in bed. Awake and alert in no acute distress. His sister is at the bedside and is able to communicate with sign language with the patient. No worsening shortness of breath, cough or congestion. He continues to maintain good O2 saturations in the 90s on room air. He is afebrile. Hemodynamically stable. EEG was read as normal. No focal slowing, epileptic discharge or seizure on the EEG. Blood cultures revealed no growth. White count 9.4. Hemoglobin 16.1. Platelets 178. Glucose 146. Procalcitonin pending. He remains on Zosyn and azithromycin. Continued on bronchodilators as needed. Remains on Solu-Medrol. Lovenox for DVT prophylaxis. The patient is seen today April 05, 2024 in follow-up on the regular medical floor. He is resting comfortably in bed. Awake and alert. He is stable and on room air. Afebrile. Hemodynamically stable. White count 16.5. Hemoglobin 14.8. Platelets 201. Sodium 142. Potassium 4.3. Bicarb 27. BUN 18. Creatinine 1.0. Glucose 135. He is continued on DuoNeb inhalations, Pulmicort inhalations, IV Solu-Medrol. Remains on Zosyn. Procalcitonin 0.48. Lovenox for DVT prophylaxis. Objective - Vital Signs Vital signs: Vital Signs Temp 98.1 F 04/05/24 07:23 Pulse 100 04/05/24 11:20 Resp 16 04/05/24 07:23 BP 133/69 04/05/24 07:23 Pulse Ox 93 L 04/05/24 07:23 FiO2 Intake & Output 04/04/24 04/05/24 04/05/24 18:59 06:59 18:59 Intake Total 1400 Output Total 300 Balance 1100 Intake: Intake, IV Titration 1400 Amount Piperacillin-Tazobactam 3 200 .375 gm In Sodium Chloride 0.9% 100 ml @ 25 mls/hr IVPB Q8H [facility] Rx#: [id number] Sodium Chloride 0.9% 1, 1200 000 ml @ 50 mls/hr IV . Q20H [facility] Rx#:[id number] Output: Urine 300 Other: Voiding Method Bedside Commode Bedside Commode Urinal Urinal Diaper Diaper Incontinent Incontinent # Voids 1 1 - Exam GENERAL EXAM: Alert, deaf 58-year-old nonverbal male patient, resting in bed, on room air, in no distress. HEAD: Normocephalic. EYES: Normal reaction of pupils, equal size. NOSE: Clear with pink turbinates. THROAT: No erythema or exudates. NECK: No masses, no JVD. CHEST: No chest wall deformity. LUNGS: Equal air entry with no crackles, wheeze, rhonchi or dullness. CVS: S1 and S2 normal with no audible murmur, regular rhythm. ABDOMEN: No hepatosplenomegaly, normal bowel sounds, no guarding or rigidity. SPINE: No scoliosis or deformity SKIN: No rashes CENTRAL NERVOUS SYSTEM: No focal deficits, tone is normal in all 4 extremities. EXTREMITIES: There is no peripheral edema. No clubbing, no cyanosis. Peripheral pulses are intact. - Labs CBC & Chem 7: 04/05/24 05:56 04/05/24 05:56 Labs: Abnormal Lab Results - Last 24 Hours (Table) 04/04/24 04/04/24 04/05/24 Range/Units 17:07 20:05 05:56 WBC 16.51 H (4.50-10.00) X 10*3/uL Immature Gran # 0.08 H (0.00-0.04) X 10*3/uL Neutrophils # 13.49 H (1.80-7.70) X 10*3/uL Monocytes # 1.37 H (0.20-1.00) X 10*3/uL Eosinophils # 0.01 L (0.04-0.35) X 10*3/uL Glucose (70-110) mg/dL POC Glucose (mg/dL) 198 H 210 H (70-110) mg/dL AST (14-35) U/L 04/05/24 04/05/24 Range/Units 05:56 07:25 WBC (4.50-10.00) X 10*3/uL Immature Gran # (0.00-0.04) X 10*3/uL Neutrophils # (1.80-7.70) X 10*3/uL Monocytes # (0.20-1.00) X 10*3/uL Eosinophils # (0.04-0.35) X 10*3/uL Glucose 135 H (70-110) mg/dL POC Glucose (mg/dL) 127 H (70-110) mg/dL AST 36 H (14-35) U/L Microbiology - Last 24 Hours (Table) 04/02/24 21:55 Blood Culture - Preliminary Blood 04/02/24 21:40 Blood Culture - Preliminary Blood 04/02/24 18:10 Blood Culture - Preliminary Blood Assessment and Plan Assessment: Altered mental status possibly secondary to accidental overdose however the patient's drug screen was negative completely. The patient is awake and alert Acute hypoxemic respiratory failure suspect secondary to aspiration. Recovered and on room air. Chest x-rays revealed no acute pulmonary process. Procalcitonin 0.48. Remains on Zosyn Febrile illness secondary to above, recovered History of impulsive disorder History of deafness Macular corneal dystrophy bilaterally Mentally challenged and nonverbal Hypertension Hyperlipidemia Diabetes mellitus Hypothyroidism Iron deficiency anemia Plan: The patient was seen and evaluated Labs and medications reviewed Currently stable and on room air Plan is for a new fci upon discharge This patient was seen independently by the pulmonary nurse practitioner addressing pulmonary issues I have personally seen and examined the patient, performed the documentation and the assessment and plan as written. Number of minutes spent on the visit: 22.
[2024-04-05 12:21] LABS: Glucose,Whole Blood 143 mg/dL (70-110)
[2024-04-05 17:06] LABS: Glucose,Whole Blood 323 mg/dL (70-110)
--- NOTE | 2024-04-05 18:13 | P.PN ---
Subjective Progress Note Date: 04/05/24 HISTORY OF PRESENT ILLNESS: This is a 58-year-old male with a previous medical history significant for hypertension and hypertensive cardiovascular disease, hyperlipidemia, history of diabetes mellitus type 2, history of impulsive disorder with deafness, history of bilateral carpal tunnel syndrome, patient lives in a half-way, apparently the patient yesterday was given accidentally medications do not belong to him and he was getting fed by the caregiver at the half-way, patient ended up becoming quite lethargic and not responsive, EMS was called and the patient was brought into the emergency department at [facility] had a CT scan of the brain did not show evidence of acute abnormalities, chest x-ray showed possible haziness in the right middle lobe, because of the presentation patient was quite stuporous not arousable, family were at the bedside, they were offered the patient to be intubated at this point in time, but they were reluctant to have an intubation as the patient is DO NOT RESUSCITATE at this point in time, therefore the patient was started on oxygen, he is currently on 2 L nasal cannula, his oxygen saturation anywhere between 91 and 94%, patient was started on IV antibiotic in the form of Zithromax as well as Zosyn, he will be seen in consultation by pulmonary medicine as well as by neurology, for his metabolic encephalopathy, I spoke with the sister at the bedside, she is planning to transfer the patient from this current half-way to a different home after he leaves the hospital he is going home with her. 04/04: Patient is sitting up in the chair no apparent distress, he is more awake and more alert today, he appears to be at baseline, his sister was at the bedside, she was concerned about his left thumb that appears to have a pustule and it and significant fluid fluid collection at the tip of the thumb and on the side of the nail, suggestive of minimal abscess, we will consult hand surgery for incision and drainage, continue IV antibiotic in the form of Zosyn for now, I will follow-up with the patient very closely. 04/05: Patient is lying down in bed in no apparent distress, he continues to have a significant paronychia to the left thumb, minimal fluctuation, minimal pus formation, consulted hand surgery for possible I&D, continue IV antibiotic, monitor the patient very closely, we will follow-up with the patient very closely patient is back to baseline, discontinue Solu-Medrol at this point in time, and will plan for the patient to be discharged in 1 or 2 days. REVIEW OF SYSTEMS: Constitutional: Patient is more awake and alert today, does not appear to be in acute distress. EENT: Patient has chronic deafness does not appear to be in acute distress. Lungs: There is no coughing, hemoptysis, no pleurisy or shortness of breath. Cardiovascular: Patient has no chest pain, shortness of breath, no orthopnea PND no edema. Abdominal: Reports no abdominal pain. Episode of nausea, and vomiting. No diarrhea. No constipation. No bloody or tarry stools reports loss of appetite. Genitourinary: No dysuria, increased frequency, urgency. No urinary retention. Baez catheter in place. Musculoskeletal: No myalgias. No muscle weakness, no gait dysfunction, no frequent falls. No back pain. No neck pain. Integumentary: No wounds, no lesions. No rash or pruritus. No unusual bruising.left thumb paronychia with abscess Neurologic: No aphasia. No facial droop. Positive for change in mentation. No head injury. Psychiatric: Impulsive disorder with deafness. Endocrine: No abnormal blood sugars. No weight change. PHYSICAL EXAMINATION: General: This is a 58-year-old male sitting up in the chair at [facility]. HEENT: Head is atraumatic, normocephalic, clear and nonicteric, conjunctiva slightly pale, mucous membranes of the mouth are moist. Neck: Supple, no JVP, normal carotid upstroke bilaterally, no lymphadenopathy. Chest: Decreased breath sounds at the bases, few rhonchi, no expiratory wheezes, no chest wall tenderness, no intercostal retractions. Heart: First heart sound is normal, second heart sound is normal there is systolic ejection murmur 2/6 located in the left sternal border. Abdomen: Soft, nontender, nondistended, positive bowel sounds. Extremities: There is no edema no calf tenderness DP +2 bilaterally, left thumb with abscess Neurologic examination: Patient is alert and oriented x 2, patient appears to be at baseline, deaf, moves all his extremities. ASSESSMENT AND PLAN: 1. Acute hypoxemic respiratory failure likely due to his aspiration pneumonia. Continue patient on Zosyn 3.375 g IV piggyback every 8 hours, discontinue Solu- Medrol, monitor the patient very closely patient is on room air at this point in time. 2. Accidental medication ingestion perhaps the patient did ingest the wrong medications that do not belong to him. Patient appears to be back to baseline his urine drug screen is negative. 3. Hypertension and hypertensive cardiovascular disease. Continue patient on lisinopril 10 mg once every day monitor the patient blood pressure very closely. 4. Mixed hyperlipidemia. Continue patient on atorvastatin 20 mg once every day, monitor lipid panel. 5. Diabetes mellitus type 2. Continue patient on Levemir and increase to 14 units at bedtime along with a sliding scale insulin, continue linagliptin 5 mg orally once every day, monitor the patient blood glucose level before each meal and at bedtime 6. Impulsive disorder. Will continue Abilify 7.5 mg orally once every day. 7. Deafness. Has been chronic. 8. Bilateral macular corneal dystrophy. Continue with current eyedrops and eye ointments. 9. Hypothyroidism. Continue levothyroxine 25 mcg orally once every day. 10. Iron deficiency anemia. We will monitor the patient CBC. Continue iron 325 mg orally twice every day. 11. DVT prophylaxis. Continue patient on on Lovenox 40 mg subcutaneously every 24 hours. 12. GI prophylaxis. continue patient on Protonix 40 mg IV push every 24 hours. 13. Physical therapy evaluation. 14. linotype worker consultation for discharge planning. 15. Left thumb abscess. Continue IV antibiotic, consult hand surgery Dr. Bundy for I&D. 16. Plan to be discharged after the I&D of the left thumb hopefully in the next 24 hours. Objective - Vital Signs Vital signs: Vital Signs Temp 98.7 F 04/05/24 12:17 Pulse 103 H 04/05/24 12:17 Resp 16 04/05/24 12:17 BP 133/73 04/05/24 12:17 Pulse Ox 92 L 04/05/24 16:10 FiO2 Intake & Output 04/04/24 04/05/24 04/05/24 18:59 06:59 18:59 Intake Total 1400 Output Total 300 Balance 1100 Intake: Intake, IV Titration 1400 Amount Piperacillin-Tazobactam 3 200 .375 gm In Sodium Chloride 0.9% 100 ml @ 25 mls/hr IVPB Q8H [facility] Rx#: [id number] Sodium Chloride 0.9% 1, 1200 000 ml @ 50 mls/hr IV . Q20H [facility] Rx#:[id number] Output: Urine 300 Other: Voiding Method Bedside Commode Bedside Commode Bedside Commode Urinal Urinal Urinal Diaper Diaper Diaper Incontinent Incontinent Incontinent # Voids 1 1 # Bowel Movements 1 - Labs CBC & Chem 7: 04/05/24 05:56 04/05/24 05:56 Labs: Abnormal Lab Results - Last 24 Hours (Table) 04/04/24 04/05/24 04/05/24 Range/Units 20:05 05:56 05:56 WBC 16.51 H (4.50-10.00) X 10*3/uL Immature Gran # 0.08 H (0.00-0.04) X 10*3/uL Neutrophils # 13.49 H (1.80-7.70) X 10*3/uL Monocytes # 1.37 H (0.20-1.00) X 10*3/uL Eosinophils # 0.01 L (0.04-0.35) X 10*3/uL Glucose 135 H (70-110) mg/dL POC Glucose (mg/dL) 210 H (70-110) mg/dL AST 36 H (14-35) U/L 04/05/24 04/05/24 04/05/24 Range/Units 07:25 12:19 17:05 WBC (4.50-10.00) X 10*3/uL Immature Gran # (0.00-0.04) X 10*3/uL Neutrophils # (1.80-7.70) X 10*3/uL Monocytes # (0.20-1.00) X 10*3/uL Eosinophils # (0.04-0.35) X 10*3/uL Glucose (70-110) mg/dL POC Glucose (mg/dL) 127 H 143 H 323 H (70-110) mg/dL AST (14-35) U/L Microbiology - Last 24 Hours (Table) 04/02/24 21:55 Blood Culture - Preliminary Blood 04/02/24 21:40 Blood Culture - Preliminary Blood 04/02/24 18:10 Blood Culture - Preliminary Blood
[2024-04-05 20:38] LABS: Glucose,Whole Blood 252 mg/dL (70-110)
--- NOTE | 2024-04-05 20:51 | P.CNOR ---
History of Present Illness - [facility] Consult date: 04/05/24 Consult reason: other (Left thumb abscess) History of present illness: This is a 58 Year old male who presented from a [facility] who reportedly is deaf and unable to communicate. All history was able to be obtained from his sister who is at bedside. She states over the last several weeks it was noted that he had left some erythema swelling and pain around the left thumb. There appears to be no inciting event or injury. Orthopedics was consulted for possible I&D. Past Medical History Past Medical History: Diabetes Mellitus, Deep Vein Thrombosis (DVT), Hyperlipidemia Additional Past Medical History / Comment(s): 2 episodes of urine incontinence and light bleeding in urine, developemental disabled,mental retardation-non verbal-able to sign-needs cad designer drafter,able to walk with walker r/t vertigo,deaf History of Any Multi-Drug Resistant Organisms: None Reported Additional Past Surgical History / Comment(s): colonscopy,green field filter Past Anesthesia/Blood Transfusion Reactions: No Reported Reaction Additional Past Anesthesia/Blood Transfusion Reaction / Comm: no hx blood transfusion Past Psychological History: No Psychological Hx Reported Smoking Status: Never smoker Past Alcohol Use History: None Reported Past Drug Use History: None Reported - Past Family History Mother Family Medical History: Cancer, Deep Vein Thrombosis (DVT) Additional Family Medical History / Comment(s): breast CA Sister(s) Family Medical History: Cancer Additional Family Medical History / Comment(s): thyroid CA Medications and Allergies Home Medications Medication Instructions Recorded Confirmed Type Citalopram Hydrobromide 40 mg PO DAILY@0630 06/10/14 04/02/24 History [Citalopram HBr] Artificial Tears-Hypromellose 1 drop BOTH EYES TID@0630,1600,2100 10/03/19 04/02/24 History [Artificial Tear Drops] Erythromycin Ophth Oint [Romycin 1 applic BOTH EYES HS 10/03/19 04/02/24 History Ophth Oint] Lovastatin [Mevacor] 80 mg PO DAILY@1700 10/03/19 04/02/24 History Mirabegron [Myrbetriq] 50 mg PO DAILY@0630 10/03/19 04/02/24 History Tamsulosin [Flomax] 0.4 mg PO DAILY@0630 10/03/19 04/02/24 History ARIPiprazole [Abilify] 7.5 mg PO HS 04/02/24 04/02/24 History Dextrose Chew [Glucose Chew Tab] 4 gm PO ONCE PRN 04/02/24 04/02/24 History Ferrous Sulfate [Feosol] 325 mg PO BID@0630,1700 04/02/24 04/02/24 History Insulin Degludec [Tresiba 10 units SQ HS 04/02/24 04/02/24 History Flextouch U-100 Pen] Johnsonmargaret Baby Shampoo 1 applic BOTH EYES CAMARENA 04/02/24 04/02/24 History Levothyroxine Sodium [Synthroid] 25 mcg PO DAILY@62904/02/24 04/02/24 History Magnesium Oxide [Magox 400] 400 mg PO DAILY@62904/02/24 04/02/24 History Melatonin 5 mg PO HS PRN 04/02/24 04/02/24 History Pantoprazole [Protonix] 40 mg PO DAILY@62904/02/24 04/02/24 History Vit C/E/Zn/Coppr/Lutein/Zeaxan 1 cap PO BID@0630,1700 04/02/24 04/02/24 History [Preservision Areds 2 Softgel] lisinopriL [Zestril] 10 mg PO DAILY@1700 04/02/24 04/02/24 History polyethylene glycoL 3350 [Miralax] 17 gm PO DAILY@62904/02/24 04/02/24 History sitaGLIPtin [Januvia] 100 mg PO DAILY@62904/02/24 04/02/24 History Allergies Allergy/AdvReac Type Severity Reaction Status Date / Time codeine Allergy Unknown Verified 04/02/24 18:48 Physical Examination Osteopathic Statement: *. No significant issues noted on an osteopathic structural exam other than those noted in the History and Physical/Consult. RUE: FPL, EPL tendon intact. There is redness erythema and swelling around the eponychial fold which extends volarly to the thumb pulp. He's nontender along the flexor tendon sheath with no fixed flexed position, fusiform swelling or pain with passive extension of the digit. Cap refill < 3 seconds. Results - Labs Labs: Abnormal Lab Results - Last 24 Hours (Table) 04/05/24 04/05/2404/05/24 Range/Units 05:56 05:56 07:25 WBC 16.51 H (4.50-10.00) X 10*3/uL Immature Gran # 0.08 H (0.00-0.04) X 10*3/uL Neutrophils # 13.49 H (1.80-7.70) X 10*3/uL Monocytes # 1.37 H (0.20-1.00) X 10*3/uL Eosinophils # 0.01 L (0.04-0.35) X 10*3/uL Glucose 135 H (70-110) mg/dL POC Glucose (mg/dL) 127 H (70-110) mg/dL AST 36 H (14-35) U/L 04/05/24 04/05/24 04/05/24 Range/Units 12:19 17:05 20:37 WBC (4.50-10.00) X 10*3/uL Immature Gran # (0.00-0.04) X 10*3/uL Neutrophils # (1.80-7.70) X 10*3/uL Monocytes # (0.20-1.00) X 10*3/uL Eosinophils # (0.04-0.35) X 10*3/uL Glucose (70-110) mg/dL POC Glucose (mg/dL) 143 H 323 H 252 H (70-110) mg/dL AST (14-35) U/L Microbiology - Last 24 Hours (Table) 04/02/24 21:55 Blood Culture - Preliminary Blood 04/02/24 21:40 Blood Culture - Preliminary Blood 04/02/24 18:10 Blood Culture - Preliminary Blood H & H 04/02/24 04/04/24 04/05/24 Range/Units 18:15 07:09 05:56 Hgb 16.0 16.1 14.8 (13.0-17.5) gm/dL Hct 49.9 49.5 46.2 (39.0-53.0) % Result Diagrams: 04/05/24 05:56 04/05/24 05:56 Assessment and Plan Assessment: 1.) Left thumb felon/paroncyhia Plan: Case findings were discussed with the sister who is also the guardian. I r ecommend incision and drainage of his left thumb abscess. Due to his mental state I think this would best be performed under mild sedation in the operating room. Risks and benefits of surgery including bleeding, continued infection, damage to surrounding tissue, and need for further surgery were discussed and the patient's guardian wished to go forward with the procedure. He currently just ate breakfast therefore incision and drainage is not able to be performed today. We will plan for a left thumb incision and drainage on April 06, 2024. -Arnold Bundy DO Orthopedic Hand/Upper Extremity Surgeon
[2024-04-05] MEDS: INSULIN DETEMIR (LEVEMIR) 100 UNIT/ML SYR SQ SCH (21:14)
[2024-04-06 07:21] LABS: Glucose,Whole Blood 120 mg/dL (70-110)
[2024-04-06 10:42] LABS: Basophils # (A) 0.02 X 10*3/uL (0.00-0.10); Basophils % (A) 0.2 %; Eosinophils # (A) 0.06 X 10*3/uL (0.04-0.35); Eosinophils % (A) 0.7 %; HCT 45.1 % (39.6-50.0); HGB 14.8 g/dL (13.0-17.0); Lymphocytes # (A) 2.16 X 10*3/uL (0.90-5.00); Lymphocytes % (A) 23.8 %; MCH 27.4 pg (27.0-32.0); MCHC 32.8 g/dL (32.0-37.0); MCV 83.4 FL (80.0-97.0); Mean Platelet Volume 8.8 FL (9.5-12.2); Monocytes # (A) 0.86 X 10*3/uL (0.20-1.00); Monocytes % (A) 9.5 %; NRBC Per 100 WBC 0 X 10*3/uL (0.00-0.01); Neutrophils # (A) 5.92 X 10*3/uL (1.80-7.70); Neutrophils % (A) 65.2 %; Platelet Count 196 X 10*3/uL (140-440); RBC 5.41 X 10*6/uL (4.40-5.60); RDW 12.9 % (11.5-14.5); WBC 9.07 X 10*3/uL (4.50-10.00)
[2024-04-06] MEDS ORDERED: HYDROmorphone 0.5 MG/0.5 ML SYRINGE IVP PRN (11:32)
--- NOTE | 2024-04-06 12:09 | P.PN ---
Subjective Progress Note Date: 04/06/24 This is a 58-year-old male patient with a history of diabetes mellitus, DVT, hyperlipidemia, developmental delay, nonverbal, deaf who resides at a local nursing home. He was brought in by EMS yesterday around 6 PM after becoming more obtunded and altered more so than usual. His sister was present and stated he is not to be intubated. The patient may have taken his roommates medications at approximately 430 yesterday afternoon including lorazepam, Amitiza, because clozapine fenofibrate Banophen and lamotrigine. His urine drug screen was negative. Chest x-ray revealed no acute pulmonary process. White count 12.5. Hemoglobin 16.0. Platelets 159. Sodium 138. Potassium 4.1. Bicarb 29. BUN 29. Creatinine 0.81. Glucose 142. Urine Legionella screen negative. Earlier this morning the patient was requiring 3 L of nasal cannula to maintain O2 saturations at 98%. Prior to that he was on 2 L with 94% O2 saturation. There was some concern about possible pneumonia aspiration pneumonia we are consulted for the same. He did have a Tmax of 101.4. Hemodynamically stable. The patient is seen this afternoon in consultation. He is currently on room air. He is awake and alert. Once we placed a stethoscope on his chest he immediately started taking deep breaths for us. The patient is seen today April 04, 2024 in follow-up on the regular medical floor. He is currently sitting up in bed. Awake and alert in no acute distress. His sister is at the bedside and is able to communicate with sign language with the patient. No worsening shortness of breath, cough or congestion. He continues to maintain good O2 saturations in the 90s on room air. He is afebrile. Hemodynamically stable. EEG was read as normal. No focal slowing, epileptic discharge or seizure on the EEG. Blood cultures revealed no growth. White count 9.4. Hemoglobin 16.1. Platelets 178. Glucose 146. Procalcitonin pending. He remains on Zosyn and azithromycin. Continued on bronchodilators as needed. Remains on Solu-Medrol. Lovenox for DVT prophylaxis. The patient is seen today April 05, 2024 in follow-up on the regular medical floor. He is resting comfortably in bed. Awake and alert. He is stable and on room air. Afebrile. Hemodynamically stable. White count 16.5. Hemoglobin 14.8. Platelets 201. Sodium 142. Potassium 4.3. Bicarb 27. BUN 18. Creatinine 1.0. Glucose 135. He is continued on DuoNeb inhalations, Pulmicort inhalations, IV Solu-Medrol. Remains on Zosyn. Procalcitonin 0.48. Lovenox for DVT prophylaxis. The patient is seen today April 06, 2024 in follow-up on the regular medical floor. He is awake and alert. He remains with good O2 saturations in the 90s on room air. No cough or congestion. No fever or chills. He has been afebrile. Hemodynamically stable. He has been having issues with some edema of the left thumb and the plan is for incision and drainage today. Otherwise no new issues. He remains on antibiotics in the form of Zosyn. Lovenox for DVT prophylaxis. Bronchodilators as needed. White count 9.0. Hemoglobin 14.8. Platelets 196. Glucose 120. Objective - Vital Signs Vital signs: Vital Signs Temp 97.6 F 04/06/24 07:16 Pulse 87 04/06/24 07:16 Resp 16 04/06/24 07:16 BP 151/61 04/06/24 07:16 Pulse Ox 93 L 04/06/24 07:16 FiO2 Intake & Output 04/05/24 04/06/24 04/06/24 18:59 06:59 18:59 Intake Total 700 Balance 700 Intake: Intake, IV Titration 700 Amount Piperacillin-Tazobactam 3 100 .375 gm In Sodium Chloride 0.9% 100 ml @ 25 mls/hr IVPB Q8H [facility] Rx#: [id number] Sodium Chloride 0.9% 1, 600 000 ml @ 50 mls/hr IV . Q20H [facility] Rx#:[id number] Other: Voiding Method Bedside Commode Bedside Commode Bedside Commode Urinal Urinal Urinal Diaper Diaper Diaper Incontinent Incontinent # Voids 3 1 # Bowel Movements 1 1 - Exam GENERAL EXAM: Alert, deaf 58-year-old nonverbal male, sitting up in bed, on room air, in no distress. HEAD: Normocephalic. EYES: Normal reaction of pupils, equal size. NOSE: Clear with pink turbinates. THROAT: No erythema or exudates. NECK: No masses, no JVD. CHEST: No chest wall deformity. LUNGS: Equal air entry with no crackles, wheeze, rhonchi or dullness. CVS: S1 and S2 normal with no audible murmur, regular rhythm. ABDOMEN: No hepatosplenomegaly, normal bowel sounds, no guarding or rigidity. SPINE: No scoliosis or deformity SKIN: No rashes CENTRAL NERVOUS SYSTEM: No focal deficits, tone is normal in all 4 extremities. EXTREMITIES: Left thumb with some edema and redness. No clubbing, no cyanosis. Peripheral pulses are intact. - Labs CBC & Chem 7: 04/06/24 07:24 04/05/24 05:56 Labs: Abnormal Lab Results - Last 24 Hours (Table) 04/05/24 04/05/24 04/05/24 Range/Units 12:19 17:05 20:37 MPV (9.5-12.2) FL Immature Gran # (0.00-0.04) X 10*3/uL POC Glucose (mg/dL) 143 H 323 H 252 H (70-110) mg/dL 04/06/24 04/06/24 Range/Units 07:20 07:24 MPV 8.8 L (9.5-12.2) FL Immature Gran # 0.05 H (0.00-0.04) X 10*3/uL POC Glucose (mg/dL) 120 H (70-110) mg/dL Microbiology - Last 24 Hours (Table) 04/02/24 21:55 Blood Culture - Preliminary Blood 04/02/24 21:40 Blood Culture - Preliminary Blood 04/02/24 18:10 Blood Culture - Preliminary Blood Assessment and Plan Assessment: Altered mental status possibly secondary to accidental overdose however the patient's drug screen was negative completely. The patient is awake and alert Acute hypoxemic respiratory failure suspect secondary to aspiration. Recovered and on room air. Chest x-rays revealed no acute pulmonary process. Procalcitonin 0.48. Remains on Zosyn Febrile illness secondary to above, recovered Edema with erythema around the left thumbnail, plan is for incision and drainage of suspected abscess today 04/06/2024 History of impulsive disorder History of deafness Macular corneal dystrophy bilaterally Mentally challenged and nonverbal Hypertension Hyperlipidemia Diabetes mellitus Hypothyroidism Iron deficiency anemia Plan: The patient was seen and evaluated Labs and medications reviewed Currently stable and on room air Remains on Zosyn To have incision and drainage of the left thumb abscess today Plan is for a new nursing home in [place] upon discharge This patient was seen independently by the pulmonary nurse practitioner addressing pulmonary issues I have personally seen and examined the patient, performed the documentation and the assessment and plan as written. Number of minutes spent on the visit: 24.
[2024-04-06 12:12] LABS: Glucose,Whole Blood 98 mg/dL (70-110)
[2024-04-06] MEDS: LACTATED RINGERS 1,000 ML IV SCH (12:34)
[2024-04-06] MEDS: DEXAMETHASONE SOD PHOSPHATE 4 MG/ML 1 ML VIAL IV ONE (12:43)
[2024-04-06] MEDS: ONDANSETRON 4 MG/2 ML VIAL IVP ONE (12:44)
[2024-04-06] MEDS ORDERED: SUCCINYLCHOLINE CHLORIDE 200 MG/10 ML VIAL IV ONE (12:56)
[2024-04-06] MEDS ORDERED: fentaNYL (PF) 50 MCG/ML 2 ML AMP ONE (12:56)
[2024-04-06] MEDS ORDERED: PROPOFOL 10 MG/ML 20 ML VIAL IV ONE (12:56)
[2024-04-06] MEDS ORDERED: MIDAZOLAM 2 MG/2 ML VIAL ONE (12:56)
[2024-04-06] MEDS ORDERED: LIDOCAINE 1% INJ 10MG/ML (20 ML MDV) ONE (12:56)
[2024-04-06] MEDS: BUPIVACAINE (PF) 0.5% 30 ML VIAL SQ ONE (13:20)
[2024-04-06 13:54] LABS: Glucose,Whole Blood 126 mg/dL (70-110)
[2024-04-06 14:24] VITALS: BP 140/78; PULSE 103; RESP 14; TEMP 98
--- NOTE | 2024-04-06 15:19 | P.DS ---
Providers Date of admission: 04/02/24 21:09 Expected date of discharge: 04/06/24 Attending physician: Giovanna Schwartz Consults: 04/03/24 10:02 Consult Physician Urgent Consulting Provider: Janusz Boothe Consult Reason/Comments: Aspiration Pneumonia Do you want consulting provider notified?: Yes 04/03/24 10:03 Consult Physician Urgent Consulting Provider: Alexandro Guerrero Consult Reason/Comments: Metabolic encephalopathy Do you want consulting provider notified?: Yes 04/04/24 16:33 Consult Physician Routine Consulting Provider: Arnold Bundy Consult Reason/Comments: left hand injury, poss abscess Do you want consulting provider notified?: Yes Primary care physician: Giovanna Schwartz [facility] Course: HISTORY OF PRESENT ILLNESS: This is a 58-year-old male with a previous medical history significant for hypertension and hypertensive cardiovascular disease, hyperlipidemia, history of diabetes mellitus type 2, history of impulsive disorder with deafness, history of bilateral carpal tunnel syndrome, patient lives in a intermediate, apparently the patient yesterday was given accidentally medications do not belong to him and he was getting fed by the caregiver at the intermediate, patient ended up becoming quite lethargic and not responsive, EMS was called and the patient was brought into the emergency department at [facility] had a CT scan of the brain did not show evidence of acute abnormalities, chest x-ray showed possible haziness in the right middle lobe, because of the presentation patient was quite stuporous not arousable, family were at the bedside, they were offered the patient to be intubated at this point in time, but they were reluctant to have an intubation as the patient is DO NOT RESUSCITATE at this point in time, therefore the patient was started on oxygen, he is currently on 2 L nasal cannula, his oxygen saturation anywhere between 91 and 94%, patient was started on IV antibiotic in the form of Zithromax as well as Zosyn, he will be seen in consultation by pulmonary medicine as well as by neurology, for his metabolic encephalopathy, I spoke with the sister at the bedside, she is planning to transfer the patient from this current intermediate to a different home after he leaves the hospital he is going home with her. 04/04: Patient is sitting up in the chair no apparent distress, he is more awake and more alert today, he appears to be at baseline, his sister was at the bedside, she was concerned about his left thumb that appears to have a pustule and it and significant fluid fluid collection at the tip of the thumb and on the side of the nail, suggestive of minimal abscess, we will consult hand surgery for incision and drainage, continue IV antibiotic in the form of Zosyn for now, I will follow-up with the patient very closely. 04/05: Patient is lying down in bed in no apparent distress, he continues to have a significant paronychia to the left thumb, minimal fluctuation, minimal pus formation, consulted hand surgery for possible I&D, continue IV antibiotic, monitor the patient very closely, we will follow-up with the patient very closely patient is back to baseline, discontinue Solu-Medrol at this point in time, and will plan for the patient to be discharged in 1 or 2 days. 04/06: Patient underwent incision and drainage of the left thumb paronychia by Dr. Bundy successfully, we will switch the patient from Zosyn into oral Augmentin 875 mg orally twice every day for the next 7 days, we will monitor the culture as an outpatient, patient can be discharged home later on this evening with his sister as to go to to his future intermediate tomorrow morning maintain the patient on current treatment plan and I will follow-up with the patient next week in the office. Discharge diagnoses: 1. Acute hypoxemic respiratory failure likely due to his aspiration pneumonia. 2. Accidental medication ingestion 3. Hypertension and hypertensive cardiovascular disease. 4. Mixed hyperlipidemia. 5. Diabetes mellitus type 2. 6. Impulsive disorder. 7. Deafness. Has been chronic. 8. Bilateral macular corneal dystrophy. 9. Hypothyroidism. 10. Iron deficiency anemia. 15. Left thumb Paronychia Patient Condition at Discharge: Stable Plan - Discharge Summary New Discharge Prescriptions: No Action Citalopram Hydrobromide [Citalopram HBr] 40 mg PO DAILY@0630 Tamsulosin [Flomax] 0.4 mg PO DAILY@0630 Mirabegron [Myrbetriq] 50 mg PO DAILY@0630 Lovastatin [Mevacor] 80 mg PO DAILY@1700 Erythromycin Ophth Oint [Romycin Ophth Oint] 1 applic BOTH EYES HS Artificial Tears-Hypromellose [Artificial Tear Drops] 1 drop BOTH EYES TID@0630,1600,2100 Pantoprazole [Protonix] 40 mg PO DAILY@0630 Levothyroxine Sodium [Synthroid] 25 mcg PO DAILY@0630 Insulin Degludec [Tresiba Flextouch U-100 Pen] 10 units SQ HS Magnesium Oxide [Magox 400] 400 mg PO DAILY@0630 sitaGLIPtin [Januvia] 100 mg PO DAILY@0630 lisinopriL [Zestril] 10 mg PO DAILY@1700 Vit C/E/Zn/Coppr/Lutein/Zeaxan [Preservision Areds 2 Softgel] 1 cap PO BID@0630,1700 Dextrose Chew [Glucose Chew Tab] 4 gm PO ONCE PRN PRN Reason: BS below 50 ARIPiprazole [Abilify] 7.5 mg PO HS Melatonin 5 mg PO HS PRN PRN Reason: Insomnia polyethylene glycoL 3350 [Miralax] 17 gm PO DAILY@0630 Ferrous Sulfate [Feosol] 325 mg PO BID@0630,1700 Johnsons Baby Shampoo 1 applic BOTH EYES CAMARENA Discharge Medication List Citalopram Hydrobromide [Citalopram HBr] 40 mg PO DAILY@0630 06/10/14 [History] Artificial Tears-Hypromellose [Artificial Tear Drops] 1 drop BOTH EYES TID@0630,1600,2100 10/03/19 [History] Erythromycin Ophth Oint [Romycin Ophth Oint] 1 applic BOTH EYES HS 10/03/19 [History] Lovastatin [Mevacor] 80 mg PO DAILY@1700 10/03/19 [History] Mirabegron [Myrbetriq] 50 mg PO DAILY@0630 10/03/19 [History] Tamsulosin [Flomax] 0.4 mg PO DAILY@0630 10/03/19 [History] ARIPiprazole [Abilify] 7.5 mg PO HS 04/02/24 [History] Dextrose Chew [Glucose Chew Tab] 4 gm PO ONCE PRN 04/02/24 [History] Ferrous Sulfate [Feosol] 325 mg PO BID@0630,1700 04/02/24 [History] Insulin Degludec [Tresiba Flextouch U-100 Pen] 10 units SQ HS 04/02/24 [History] Johnsons Baby Shampoo 1 applic BOTH EYES CAMARENA 04/02/24 [History] Levothyroxine Sodium [Synthroid] 25 mcg PO DAILY@62904/02/24 [History] Magnesium Oxide [Magox 400] 400 mg PO DAILY@62904/02/24 [History] Melatonin 5 mg PO HS PRN 04/02/24 [History] Pantoprazole [Protonix] 40 mg PO DAILY@62904/02/24 [History] Vit C/E/Zn/Coppr/Lutein/Zeaxan [Preservision Areds 2 Softgel] 1 cap PO BID@629,169904/02/24 [History] lisinopriL [Zestril] 10 mg PO DAILY@169904/02/24 [History] polyethylene glycoL 3350 [Miralax] 17 gm PO DAILY@62904/02/24 [History] sitaGLIPtin [Januvia] 100 mg PO DAILY@62904/02/24 [History] Follow up Appointment(s)/Referral(s): Giovanna Schwartz MD [Primary Care Provider] - 1-2 days
[2024-04-06 16:12] LABS: ALT 29 U/L (10-49); AST 32 U/L (14-35); Albumin 3.8 g/dL (3.8-4.9); Albumin/Globulin Ratio 1.73 Ratio (1.60-3.17); Alkaline Phosphatase 55 U/L (41-126); BUN/Creat Ratio 15.67 Ratio (12.00-20.00); Blood Urea Nitrogen 14.1 mg/dL (9.0-27.0); Calcium 9.5 mg/dL (8.7-10.3); Carbon Dioxide 24.7 mmol/L (21.6-31.8); Chloride 103 mmol/L (96-109); Globulin 2.2 g/dL (1.6-3.3); Glucose 122 mg/dL (70-110); Potassium 3.7 mmol/L (3.5-5.5); Sodium 140 mmol/L (135-145); Total Bilirubin 0.9 mg/dL (0.3-1.2)
--- NOTE | 2024-04-06 16:36 | P.OP ---
Date of Procedure: 04/06/24 Preoperative Diagnosis: Left thumb abscess Postoperative Diagnosis: Left thumb abscess Procedure(s) Performed: 1.) Incision and drainage of left thumb abscess 2.) Left thumb nail plate removal Anesthesia: SOLANGEA Surgeon: Arnold Bundy Estimated Blood Loss (ml): 5 Pathology: none sent Condition: stable Disposition: PACU Description of Procedure: This is a 58 year old male who presents today for a left thumb I&D for an acute thumb abscess. Risks and benefits of surgery were discussed with the patient's legal guardian including bleeding, damage to surrounding tissue, infection, need for further surgery as well as risks of anesthesia including pulmonary embolism and even and the patient wished to proceed with surgical intervention. The patient was seen in the pre-operative area by myself. Consent and H&P were completed and updated. The correct extremity was marked in the pre-operative area by myself and all other questions were answered. Operative Narrative: The patient was brought to the operating room by the department of anesthesia. They remained on the portable stretcher and a rolling hand table was brought to the side of the operative extremity. Pre-operative time out was performed indicating the correct patient, procedure and laterality. All in the room agreed. Pre-operative antibiotics were given prior to skin incision. The patient was then drifted off to sleep by the department of anesthesia. A nonsterile tourniquet was then applied to the operative extremity and the left upper extremity was then prepped and draped in normal sterile fashion. The operative extremity was the exsanguinated with an esmarch bandage and the tourniquet was inflated to 250mmHg. 15 blade scalpel was utilized to incise underneath the eponychial fold and a very small amount of purulence was able to be expressed. A small stab incision was made on the radial aspect of the volar pulp and tenotomy scissors were used to break up septations in the volar pulp. The nail plate was then atraumatically removed from the underlying nailbed with a freer elevator. The wound was then irrigated. Digital block was performed with 8cc's of 0.5% Bupivicaine. Sterile dressing was applied with adaptic, bacitrain, 4x4s and a soft dressing was applied. Tourniquet was let down and the hand had immediate perfusion. The patient was then transported to PACU in stable condition. Disposition: Patient may keep the dressing on for 24 hours and may remove the following day and cover with a bandaid. He is stable for discharge form an orthopedic stand point to be discharged with PO antibiotics, recommend Bactrim DS. Follow up in outpatient setting in 2 weeks if symptoms fail to improve, otherwise patient may follow up on a PRN basis. Arnold Bundy DO Orthopedic Hand/Upper Extremity Surgeon
[2024-04-06] MEDS ORDERED: AMOXIC-POT CLAV 875-125MG 1 EACH TAB PO SCH (21:00)
[2024-04-08] MEDS ORDERED: BABY SHAMPOO BOTH EYES SCH (09:00)
--- NOTE | 2024-04-13 13:33 | CDI ---
Documentation Clarification Form Date: 04/13/2024 01:02:26 PM From: Verna Lr RN, CCDS Phone: [phone] Admit Date: 04/02/2024 09:09:00 PM Patient Name: Wilfrido Magallanes Visit Number: [id number] Discharge Date: 04/06/2024 04:25:00 PM ATTENTION: The Clinical Documentation Specialists (CDI) and [facility] Coding Staff appreciate your assistance in clarifying documentation. Please respond to the clarification below the line at the bottom and electronically sign. The CDI & [facility] Coding staff will review the response and follow-up if needed. Please note: Queries are made part of the Legal Health Record. If you have any questions, please contact the author of this message via ITS. Dr. Giovanna Schwartz The patient had aspiration pneumonia and was tachycardic with fever. Based on this information and the findings below, is there an additional diagnosis that is clinically appropriate for this patient? History/Risk Factors: HTN, CAD, HLD, DM, impulsive disorder with deafness, mentally challenged and lives in a mcc. The patient possibly ingested his room-mates meds and became obtunded and altered. According to EMS he was vomiting because the staff was trying to feed him even though he was more obtunded than baseline. Clinical Indicators: 04/02 WBC 12.5; 04/05 WBC 16.51 04/04 Procalcitonin: 0.48 Vital signs: 04/02 HR 118; 04/02 RR 26; 04/03 HR 128; 04/03 Temp 99.0-101.4-100.0; 04/05 pox 88% 04/05 CXR: Bibasilar airspace opacities compatible with pneumonia ED: "Patient is tachycardic." 04/03 Pulmonary consult: "Acute hypoxemic respiratory failure suspect secondary to aspiration. Chest x-rays revealed no acute pulmonary process. Procalcitonin pending. Febrile illness secondary to above." 04/05 Ortho consult: "Left thumb felon/paroncyhia." Discharge summary: "Acute hypoxemic respiratory failure likely due to his aspiration pneumonia." Treatment: s/p I&D of left thumb abscess Antibiotics: IV Zosyn 3.375gm Q8H 04/03-5/10; IV Azithromycin 500mg Q24H 04/02-04/04 IV Bolus: 1L 0.9 NS IV bolus x1 on 04/02 Is there an additional diagnosis that is clinically appropriate for this patient? [ x ] Sepsis, present on admission [ ] Sepsis, developed during stay, not present on admission [ ] No additional diagnosis [ ] Other, please specify [ ] Unable to determine SIRS Criteria: 2 or more of the following may indicate SIRS Temperature < 96.8F (36C) or > 101.0F (38.3C) Heart Rate > 90 bpm Respiratory Rate > 20 breaths/min or PaCO2 < 32 mmHg White Blood Cell Count > 12,000 or < 4,000 cells/mm3 or > 10% bands MTDD
== END 2024-04-06 16:25 | disposition home or self-care (01) | DRG 871 ==
LOC: EC 17:57 → EEVIPCON 17:57 → 5NMEDONC 21:09
PROVIDERS: ADMIT Internal Medicine; ATTEND Internal Medicine
PROC: 0HBQXZZ Excision of Finger Nail, External Approach (ICD-10-PCS; 2024-04-06)
PROC: 0J9K0ZZ Drainage of Left Hand Subcutaneous Tissue and Fascia, Open Approach (ICD-10-PCS; principal; 2024-04-06 13:00)
DX: A41.9 Sepsis, unspecified organism (principal); G92.8 Other toxic encephalopathy; J69.0 Pneumonitis due to inhalation of food and vomit; J96.01 Acute respiratory failure with hypoxia; L02.512 Cutaneous abscess of left hand; T50.901A Poisoning by unspecified drugs, medicaments and biological substances, accidental (unintentional), initial encounter; D50.9 Iron deficiency anemia, unspecified; E78.2 Mixed hyperlipidemia; F79 Unspecified intellectual disabilities; H18.5 Hereditary corneal dystrophies; Z66 Do not resuscitate; H91.3 Deaf nonspeaking, not elsewhere classified; I11.9 Hypertensive heart disease without heart failure; L03.012 Cellulitis of left finger; Z79.4 Long term (current) use of insulin; Z79.84 Long term (current) use of oral hypoglycemic drugs; Z79.890 Hormone replacement therapy; Z79.899 Other long term (current) drug therapy; Z80.3 Family history of malignant neoplasm of breast; Z80.8 Family history of malignant neoplasm of other organs or systems; Z82.49 Family history of ischemic heart disease and other diseases of the circulatory system; Z82.5 Family history of asthma and other chronic lower respiratory diseases; Z83.3 Family history of diabetes mellitus
CPT/HCPCS: 36415; 51702; 70450; 71045; 80053; 80143; 80179; 80306; 82140; 82803; 83605; 83735; 84145; 85025; 87040; 87449; 93005; 94640; 95816; 96365; 96366; 96367; 96375; 96376; 99285